=== PATIENT | male | born 1995 | race Caucasian/White ===

== ENCOUNTER 2017-05-17 21:08 | Emergency (ER) | payer MEDICAID ==
[~2017-05-17] VITALS: Ht 162.6 cm; Wt 59.1 kg
[~2017-05-17 21:08] MED LIST: ESOM20CA PO; MESA4ENE4 RC; ONDA4TAB59 PO; ONDA4TAB6 PO; REM100I IV
[2017-05-17] MEDS ORDERED: metoclopramide 5 mg/ml inj IV ONE (21:30)
[2017-05-17] MEDS ORDERED: glycopyrrolate 0.2mg/ml inj IV ONE (21:30)
[2017-05-17] MEDS ORDERED: LORazepam 2 mg/ml vial IV ONE (21:30)
[2017-05-17] MEDS ORDERED: normal saline 1000ML IV soln IVB ONE ×2 (21:30)
[2017-05-17] MEDS ORDERED: diphenhydrAMINE 50 mg/ml inj IV ONE (21:30)
[2017-05-17 22:09] LABS: BASOPHILS % (AUTO) 0.2 % (0-1); EOSINOPHILS # (AUTO) 0.3 X10'3 (0-0.9); HEMATOCRIT 36.3 % (42.0-52.0); HEMOGLOBIN 12.1 g/dl (14.0-17.9); LYMPHOCYTES # (AUTO) 1.5 X10'3 (1.1-4.8); LYMPHOCYTES % (AUTO) 11.3 % (21-51); MEAN CORPUSCULAR HEMOGLOBIN 29.4 PG (27.0-31.0); MEAN CORPUSCULAR HGB CONC 33.3 % (33.0-36.5); MEAN CORPUSCULAR VOLUME 88.5 FL (78-98); MEAN PLATELET VOLUME 7.5 FL (7.4-10.4); MONOCYTES # (AUTO) 1.4 X10'3 (0-0.9); MONOCYTES % (AUTO) 10.7 % (2-12); NEUTROPHILS # (AUTO) 9.8 X10'3 (1.8-7.7); NEUTROPHILS % (AUTO) 75.8 % (42-75); PLATELET COUNT 450 X10'3 (140-440); RED BLOOD COUNT 4.11 X10'6 (4.70-6.10); RED CELL DISTRIBUTION WIDTH 13.7 % (11.5-14.5); WHITE BLOOD COUNT 12.9 X10'3 (4.5-11.0)
[2017-05-17 22:23] LABS: ALANINE AMINOTRANSFERASE 11 U/L (12-78); ALBUMIN 2.6 G/DL (3.4-5.0); ALBUMIN/GLOBULIN RATIO 0.5 (1.1-1.5); ALKALINE PHOSPHATASE 61 IU/L (20-180); ANION GAP 11 (8-16); ASPARTATE AMINO TRANSFERASE 15 U/L (10-37); BILIRUBIN,TOTAL 0.7 MG/DL (0.1-1.0); BLOOD UREA NITROGEN 7 MG/DL (7-18); BUN/CREATININE RATIO 7.1 (5.4-32.0); CALCIUM 8.4 MG/DL (8.5-10.1); CHLORIDE 101 MMOL/L (99-107); CREATININE 0.99 MG/DL (0.60-1.10); GLUCOSE 90 MG/DL (70-104); LIPASE 69 U/L (73-393); SODIUM 137 MMOL/L (135-145); TOTAL CARBON DIOXIDE 24.9 MMOL/L (24-32); TOTAL PROTEIN 7.6 G/DL (6.4-8.2); eGFR > 90 ML/MIN
[2017-05-17] MEDS ORDERED: POTA20TA19 PO (22:35)
[2017-05-17 23:29] LABS: CLARITY,URINE Clear (Clear); COLOR,URINE Dark Yellow (Yellow); GLUCOSE, URINE Negative (Neg); KETONES,URINE 15 mg/dl (Neg); LEUKOCYTE ESTERASE ,URINE Negative (Neg); NITRITES, URINE Negative (Neg); OCCULT BLOOD,URINE Moderate (Neg); PROTEIN,URINE Trace mg/dl (Neg)
[2017-05-17 23:47] LABS: UA COLLECTION TYPE VOIDED
[2017-05-17 23:57] VITALS: BP 121/69
[2017-05-17 23:58] LABS: BACTERIA,URINE 1+ /HPF (Neg); MUCUS STRANDS MODERATE /LPF (Neg); SQUAMOUS EPITHELIAL CELL,UR NONE SEEN /LPF (FEW); WBC,URINE 0-4 /HPF (0-4)
[2017-05-18 05:09] LABS: TOTAL CELLS COUNTED 100
[2017-05-18 05:10] LABS: PLATELET ESTIMATE INCREASED
== END 2017-05-17 23:58 | disposition home or self-care (01) ==
LOC: ER 21:09
DX: E87.6 Hypokalemia (principal); R10.84 Generalized abdominal pain; F12.10 Cannabis abuse, uncomplicated; I10 Essential (primary) hypertension
CPT/HCPCS: 36415; 80053; 81001; 83690; 85025; 96361; 96374; 96375; 99284; J1200; J2060; J2270; J2765; J3490; J7030

== ENCOUNTER 2017-05-24 21:22 | Emergency (ER) | payer MEDICAID ==
[~2017-05-24] VITALS: Ht 162.6 cm; Wt 57.8 kg
[~2017-05-24 21:22] MED LIST changes: +POTA20TA19 PO
[2017-05-25] MEDS ORDERED: normal saline 1000ML IV soln IVB ONE (00:05)
[2017-05-25] MEDS ORDERED: ondansetron/PF 4mg/2ml inj IV ONE (00:05)
[2017-05-25 00:50] LABS: BASOPHILS % (AUTO) 0.1 % (0-1); EOSINOPHILS # (AUTO) 0.4 X10'3 (0-0.9); EOSINOPHILS % (AUTO) 3.9 % (0-6); HEMATOCRIT 31.8 % (42.0-52.0); HEMOGLOBIN 10.5 g/dl (14.0-17.9); LYMPHOCYTES # (AUTO) 1.7 X10'3 (1.1-4.8); LYMPHOCYTES % (AUTO) 17.1 % (21-51); MEAN CORPUSCULAR HEMOGLOBIN 29.2 PG (27.0-31.0); MEAN CORPUSCULAR HGB CONC 33.1 % (33.0-36.5); MEAN PLATELET VOLUME 7.9 FL (7.4-10.4); MONOCYTES % (AUTO) 10.7 % (2-12); NEUTROPHILS # (AUTO) 6.7 X10'3 (1.8-7.7); NEUTROPHILS % (AUTO) 68.2 % (42-75); PLATELET COUNT 376 X10'3 (140-440); RED BLOOD COUNT 3.61 X10'6 (4.70-6.10); RED CELL DISTRIBUTION WIDTH 14.1 % (11.5-14.5); WHITE BLOOD COUNT 9.8 X10'3 (4.5-11.0)
[2017-05-25 01:09] LABS: ALANINE AMINOTRANSFERASE 16 U/L (12-78); ALBUMIN 2.2 G/DL (3.4-5.0); ALBUMIN/GLOBULIN RATIO 0.5 (1.1-1.5); ALKALINE PHOSPHATASE 56 IU/L (20-180); ANION GAP 4 (8-16); ASPARTATE AMINO TRANSFERASE 15 U/L (10-37); BILIRUBIN,TOTAL 0.3 MG/DL (0.1-1.0); BLOOD UREA NITROGEN 6 MG/DL (7-18); BUN/CREATININE RATIO 7.8 (5.4-32.0); CHLORIDE 106 MMOL/L (99-107); CREATININE 0.77 MG/DL (0.60-1.10); GLUCOSE 86 MG/DL (70-104); LIPASE 100 U/L (73-393); MAGNESIUM 2.1 MG/DL (1.5-2.4); POTASSIUM 3.7 MMOL/L (3.5-5.1); SODIUM 138 MMOL/L (135-145); TOTAL CARBON DIOXIDE 27.8 MMOL/L (24-32); eGFR > 90 ML/MIN
[2017-05-25] MEDS ORDERED: methylPREDNISolone sod succ 125mg/2ml vial IV ONE (01:45)
[2017-05-25] MEDS ORDERED: PRED20TA PO (01:46)
[2017-05-25 01:54] VITALS: BP 66/72
== END 2017-05-25 01:57 | disposition home or self-care (01) ==
LOC: ER 21:23
DX: K50.10 Crohn's disease of large intestine without complications (principal); R10.84 Generalized abdominal pain; F12.10 Cannabis abuse, uncomplicated; I10 Essential (primary) hypertension; Z79.899 Other long term (current) drug therapy
CPT/HCPCS: 36415; 74176; 80053; 83690; 83735; 85025; 96361; 96374; 96375; 99285; J2270; J2405; J2930; J7030

== ENCOUNTER 2017-06-28 14:27 | Inpatient (IN) | payer MEDICAID ==
[~2017-06-28] VITALS: Ht 165.1 cm; Wt 56.8 kg
[~2017-06-28 14:27] MED LIST changes: -POTA20TA19 PO
[2017-06-28] MEDS ORDERED: normal saline 1000ML IV soln IVB ONE (15:30)
[2017-06-28 16:02] LABS: BASOPHILS % (AUTO) 0.1 % (0-1); EOSINOPHILS # (AUTO) 0.2 X10'3 (0-0.9); EOSINOPHILS % (AUTO) 1.4 % (0-6); HEMATOCRIT 35.1 % (42.0-52.0); LYMPHOCYTES # (AUTO) 0.6 X10'3 (1.1-4.8); MEAN CORPUSCULAR HEMOGLOBIN 29.7 PG (27.0-31.0); MEAN CORPUSCULAR HGB CONC 34.1 % (33.0-36.5); MEAN CORPUSCULAR VOLUME 87.1 FL (78-98); MEAN PLATELET VOLUME 7.3 FL (7.4-10.4); MONOCYTES # (AUTO) 0.1 X10'3 (0-0.9); MONOCYTES % (AUTO) 1.2 % (2-12); NEUTROPHILS % (AUTO) 92.3 % (42-75); PLATELET COUNT 332 X10'3 (140-440); RED BLOOD COUNT 4.03 X10'6 (4.70-6.10); RED CELL DISTRIBUTION WIDTH 17.3 % (11.5-14.5); WHITE BLOOD COUNT 11.9 X10'3 (4.5-11.0)
[2017-06-28 16:12] LABS: INR 1.1 INR; PARTIAL THROMBOPLASTIN TIME 27 SECONDS (22-32); PROTHROMBIN TIME 11.4 SECONDS (9.0-12.0)
[2017-06-28 16:16] LABS: TOTAL CELLS COUNTED 100
[2017-06-28 16:17] LABS: ANISOCYTOSIS 1+; PLATELET ESTIMATE NORMAL
[2017-06-28 16:23] LABS: ALANINE AMINOTRANSFERASE 11 U/L (12-78); ALBUMIN 2.6 G/DL (3.4-5.0); ALBUMIN/GLOBULIN RATIO 0.6 (1.1-1.5); ALKALINE PHOSPHATASE 53 IU/L (20-180); ANION GAP 8 (8-16); ASPARTATE AMINO TRANSFERASE 10 U/L (10-37); BILIRUBIN,TOTAL 0.4 MG/DL (0.1-1.0); BLOOD UREA NITROGEN 6 MG/DL (7-18); BUN/CREATININE RATIO 8.6 (5.4-32.0); CALCIUM 8.6 MG/DL (8.5-10.1); CHLORIDE 105 MMOL/L (99-107); GLUCOSE 99 MG/DL (70-104); SODIUM 142 MMOL/L (135-145); TOTAL CARBON DIOXIDE 28.9 MMOL/L (24-32); TOTAL PROTEIN 6.9 G/DL (6.4-8.2); TROPONIN I < 0.04 NG/ML (0.0-0.05); eGFR > 90 ML/MIN
[2017-06-28 16:25] LABS: CLARITY,URINE Clear (Clear); GLUCOSE, URINE Negative (Neg); KETONES,URINE Negative (Neg); LEUKOCYTE ESTERASE ,URINE Negative (Neg); NITRITES, URINE Negative (Neg); OCCULT BLOOD,URINE Trace (Neg); PH,URINE 6.5 (4.8-8.0); PROTEIN,URINE Negative (Neg); UROBILINOGEN,URINE 0.2 E.U/dL (0.2-1.0)
[2017-06-28 16:30] LABS: COLOR,URINE STRAW (Yellow); UA COLLECTION TYPE CLN CATCH MIDSTREAM
[2017-06-28 16:34] LABS: BACTERIA,URINE NONE SEEN /HPF (Neg); MUCUS STRANDS NONE SEEN /LPF (Neg); RBC,URINE 0-2 /HPF (0-2); SQUAMOUS EPITHELIAL CELL,UR NONE SEEN /LPF (FEW); WBC,URINE NONE SEEN /HPF (0-4)
[2017-06-28] MEDS ORDERED: CefTRIAXone 2gm/NS 100ml IVPB 100 ML IV ONE (17:25)
[2017-06-28] MEDS ORDERED: normal saline 1000ML IV soln IV ONE (17:25)
[2017-06-28 17:45] LABS: MAGNESIUM 1.8 MG/DL (1.5-2.4)
[2017-06-28] MEDS ORDERED: mag hydrox/Alum hydrox/simeth 30ml oral suspension PO PRN (18:10)
[2017-06-28] MEDS ORDERED: ondansetron/PF 4mg/2ml inj IV PRN (18:10)
[2017-06-28] MEDS ORDERED: acetaminophen 325mg tablet PO PRN (18:10)
[2017-06-28] MEDS ORDERED: magnesium hydroxide 30ml (MOM) UD suspension PO PRN (18:10)
[2017-06-28] MEDS ORDERED: iohexol 350MG/ML 100ml bottle IV ONE (18:26)
[2017-06-28] MEDS: normal saline 1000ml 1,000 ML IV SCH (18:59)
[2017-06-28 19:45] VITALS: BP 135/82
[2017-06-28] MEDS ORDERED: MERC50TA16 PO (20:09)
[2017-06-28] MEDS ORDERED: METR250T PO (20:11)
[2017-06-28] MEDS ORDERED: PANT-47 PO (20:12)
[2017-06-28] MEDS ORDERED: ESCI10TA54 PO (20:13)
[2017-06-28] MEDS ORDERED: PRED20TA PO ×2 (20:13→20:16)
[2017-06-28] MEDS ORDERED: CHOL100046 PO (20:14)
[2017-06-28] MEDS: cefepime 2g/NS 100ml ADVANTAGE 100 ML IV SCH (20:31)
[2017-06-28] MEDS: heparin, porcine 5000 units/ml vial SQ SCH (20:32)
[2017-06-29] VITALS: BP 127/90
[2017-06-29] MEDS: normal saline 1000ml 1,000 ML IV SCH (04:40)
[2017-06-29 04:50] LABS: BASOPHILS % (AUTO) 0.2 % (0-1); EOSINOPHILS # (AUTO) 0.2 X10'3 (0-0.9); EOSINOPHILS % (AUTO) 1.6 % (0-6); HEMOGLOBIN 10.4 g/dl (14.0-17.9); LYMPHOCYTES # (AUTO) 1.4 X10'3 (1.1-4.8); LYMPHOCYTES % (AUTO) 9.9 % (21-51); MEAN CORPUSCULAR HEMOGLOBIN 29.7 PG (27.0-31.0); MEAN CORPUSCULAR HGB CONC 33.7 % (33.0-36.5); MEAN CORPUSCULAR VOLUME 88.1 FL (78-98); MONOCYTES # (AUTO) 1.2 X10'3 (0-0.9); MONOCYTES % (AUTO) 8.7 % (2-12); NEUTROPHILS # (AUTO) 11.1 X10'3 (1.8-7.7); NEUTROPHILS % (AUTO) 79.6 % (42-75); PLATELET COUNT 352 X10'3 (140-440); RED BLOOD COUNT 3.51 X10'6 (4.70-6.10); RED CELL DISTRIBUTION WIDTH 16.9 % (11.5-14.5)
[2017-06-29 05:11] LABS: ANION GAP 8 (8-16); BLOOD UREA NITROGEN 7 MG/DL (7-18); CALCIUM 8.1 MG/DL (8.5-10.1); CHLORIDE 108 MMOL/L (99-107); GLUCOSE 117 MG/DL (70-104); POTASSIUM 4.2 MMOL/L (3.5-5.1); SODIUM 144 MMOL/L (135-145); TOTAL CARBON DIOXIDE 27.7 MMOL/L (24-32); eGFR > 90 ML/MIN
[2017-06-29 07:00] VITALS: BP 117/69
[2017-06-29] MEDS: cefepime 2g/NS 100ml ADVANTAGE 100 ML IV SCH (07:42)
[2017-06-29] MEDS: heparin, porcine 5000 units/ml vial SQ SCH (08:00)
[2017-06-29 11:00] VITALS: BP 124/84
== END 2017-06-29 15:32 | disposition home or self-care (01) | DRG 422 ==
LOC: ER 14:27 → ED HOLD 18:06 → SUR 3N 19:33
PROVIDERS: ADMIT Family Medicine; ATTEND Family Medicine
DX: E86.0 Dehydration (principal); K50.90 Crohn's disease, unspecified, without complications; I10 Essential (primary) hypertension; T38.0X5A Adverse effect of glucocorticoids and synthetic analogues, initial encounter; D72.829 Elevated white blood cell count, unspecified; F12.90 Cannabis use, unspecified, uncomplicated; Z79.52 Long term (current) use of systemic steroids; Z79.899 Other long term (current) drug therapy; Y92.89 Other specified places as the place of occurrence of the external cause
CPT/HCPCS: 36415; 70450; 71045; 71275; 72125; 80048; 80053; 81001; 83605; 83735; 84145; 84484; 85025; 85610; 85730; 87040; 87070; 93306; 96361; 96365; 99285; J0692; J0696; J1644; J7030; Q9967

== ENCOUNTER 2017-10-12 20:50 | Emergency (ER) | payer MEDICAID ==
[~2017-10-12] VITALS: Ht 165.1 cm; Wt 58.6 kg
[~2017-10-12 20:50] MED LIST changes: +CHOL100046 PO; +ESCI10TA54 PO; -ESOM20CA PO; +MERC50TA16 PO; -MESA4ENE4 RC; +METR250T PO; -ONDA4TAB59 PO; -ONDA4TAB6 PO; +PANT-47 PO; +PRED20TA PO; -REM100I IV
[2017-10-12 21:17] LABS: BASOPHILS % (AUTO) 0.3 % (0-1); EOSINOPHILS # (AUTO) 0.5 X10'3 (0-0.9); EOSINOPHILS % (AUTO) 4.8 % (0-6); HEMATOCRIT 33.2 % (42.0-52.0); HEMOGLOBIN 11.3 g/dl (14.0-17.9); LYMPHOCYTES # (AUTO) 1.6 X10'3 (1.1-4.8); LYMPHOCYTES % (AUTO) 15.8 % (21-51); MEAN CORPUSCULAR HEMOGLOBIN 29.7 PG (27.0-31.0); MEAN CORPUSCULAR VOLUME 87.2 FL (78-98); MEAN PLATELET VOLUME 6.2 FL (7.4-10.4); MONOCYTES # (AUTO) 0.8 X10'3 (0-0.9); NEUTROPHILS # (AUTO) 7.2 X10'3 (1.8-7.7); NEUTROPHILS % (AUTO) 71.1 % (42-75); PLATELET COUNT 617 X10'3 (140-440); RED CELL DISTRIBUTION WIDTH 17.1 % (11.5-14.5); WHITE BLOOD COUNT 10.1 X10'3 (4.5-11.0)
[2017-10-12 21:27] LABS: INR 1.2 INR; PROTHROMBIN TIME 12.3 SECONDS (9.0-12.0)
[2017-10-12] MEDS ORDERED: dexamethasone sod phosphate 10mg/ml inj IV STA (21:29)
[2017-10-12 21:31] LABS: ALANINE AMINOTRANSFERASE 16 U/L (12-78); ALBUMIN 2.2 G/DL (3.4-5.0); ALBUMIN/GLOBULIN RATIO 0.4 (1.1-1.5); ALKALINE PHOSPHATASE 66 IU/L (20-180); ANION GAP 8 (8-16); ASPARTATE AMINO TRANSFERASE 11 U/L (10-37); BILIRUBIN,TOTAL 0.4 MG/DL (0.1-1.0); BLOOD UREA NITROGEN 4 MG/DL (7-18); BUN/CREATININE RATIO 4.3 (5.4-32.0); CALCIUM 8.1 MG/DL (8.5-10.1); CHLORIDE 101 MMOL/L (99-107); CREATININE 0.94 MG/DL (0.60-1.10); POTASSIUM 3.5 MMOL/L (3.5-5.1); SODIUM 136 MMOL/L (135-145); TOTAL CARBON DIOXIDE 27.1 MMOL/L (24-32); TOTAL PROTEIN 7.4 G/DL (6.4-8.2); eGFR > 90 ML/MIN
[2017-10-12 21:33] LABS: GLUCOSE 94 MG/DL (70-104)
[2017-10-12] MEDS ORDERED: ondansetron/PF 4mg/2ml inj IV ONE (21:35)
[2017-10-12] MEDS ORDERED: normal saline 1000ML IV soln IVB ONE (21:35)
[2017-10-12 21:39] LABS: NUCLEATED RED BLOOD CELLS 1 /100WBC (0-0); TOTAL CELLS COUNTED 100
[2017-10-12 21:40] LABS: ANISOCYTOSIS 1+; LARGE PLATELETS FEW; PLATELET ESTIMATE INCREASED
[2017-10-12 22:00] VITALS: BP 109/61
[2017-10-12] MEDS ORDERED: PRED5TAB PO (22:01)
[2017-10-12] MEDS ORDERED: ONDA4TAB9 PO (22:04)
[2017-10-12 22:48] LABS: CLARITY,URINE CLEAR (Clear); COLOR,URINE YELLOW (Yellow); GLUCOSE, URINE NEGATIVE (Neg); KETONES,URINE NEGATIVE (Neg); LEUKOCYTE ESTERASE ,URINE NEGATIVE (Neg); NITRITES, URINE NEGATIVE (Neg); OCCULT BLOOD,URINE MODERATE (Neg); PH,URINE 6.5 (4.8-8.0); PROTEIN,URINE NEGATIVE (Neg); UROBILINOGEN,URINE 0.2 E.U/dL (0.2-1.0)
[2017-10-12 22:59] LABS: UA COLLECTION TYPE CLN CATCH MIDSTREAM
[2017-10-12 23:01] LABS: BACTERIA,URINE NONE SEEN /HPF (Neg); WBC,URINE 0-4 /HPF (0-4)
[2017-10-12 23:02] LABS: MUCUS STRANDS MANY /LPF (Neg); SQUAMOUS EPITHELIAL CELL,UR FEW /LPF (FEW); TRANSITIONAL EPI CELLS,URINE FEW /HPF
== END 2017-10-12 23:01 | disposition home or self-care (01) ==
LOC: ER 20:50
DX: K50.90 Crohn's disease, unspecified, without complications (principal); I10 Essential (primary) hypertension; F12.10 Cannabis abuse, uncomplicated; Z79.899 Other long term (current) drug therapy
CPT/HCPCS: 36415; 80053; 81001; 85025; 85610; 96374; 96375; 99284; J1100; J2405; J7030

== ENCOUNTER 2018-01-28 23:02 | Emergency (ER) | payer MEDICAID ==
[~2018-01-28] VITALS: Ht 165.1 cm; Wt 61.1 kg
[~2018-01-28 23:02] MED LIST changes: +PRED5TAB PO
[2018-01-28] MEDS ORDERED: normal saline 1000ML IV soln IVB ONE (23:40)
[2018-01-28] MEDS ORDERED: ondansetron/PF 4mg/2ml inj IV ONE (23:40)
[2018-01-28] MEDS ORDERED: morphine 4 MG/ML inj SYRINge IV PRN (23:40)
[2018-01-29 00:31] LABS: ALANINE AMINOTRANSFERASE 10 U/L (12-78); ALBUMIN 2.3 G/DL (3.4-5.0); ALBUMIN/GLOBULIN RATIO 0.5 (1.1-1.5); ALKALINE PHOSPHATASE 72 IU/L (20-180); ANION GAP 9 (8-16); ASPARTATE AMINO TRANSFERASE 13 U/L (10-37); BILIRUBIN,TOTAL 0.3 MG/DL (0.1-1.0); BLOOD UREA NITROGEN 4 MG/DL (7-18); CALCIUM 8.7 MG/DL (8.5-10.1); CHLORIDE 102 MMOL/L (99-107); CREATININE 0.67 MG/DL (0.60-1.10); GLUCOSE 83 MG/DL (70-104); LIPASE 82 U/L (73-393); POTASSIUM 3.8 MMOL/L (3.5-5.1); SODIUM 137 MMOL/L (135-145); TOTAL CARBON DIOXIDE 26.2 MMOL/L (24-32); TOTAL PROTEIN 7.4 G/DL (6.4-8.2); eGFR > 90 ML/MIN
[2018-01-29 00:57] LABS: BASOPHILS # (AUTO) 0.1 X10'3 (0-0.2); BASOPHILS % (AUTO) 0.9 % (0-1); EOSINOPHILS # (AUTO) 0.3 X10'3 (0-0.9); HEMATOCRIT 32.4 % (42.0-52.0); HEMOGLOBIN 10.6 g/dl (14.0-17.9); LYMPHOCYTES # (AUTO) 1.4 X10'3 (1.1-4.8); LYMPHOCYTES % (AUTO) 14.7 % (21-51); MEAN CORPUSCULAR HGB CONC 32.8 % (33.0-36.5); MEAN CORPUSCULAR VOLUME 97.6 FL (78-98); MEAN PLATELET VOLUME 7.7 FL (7.4-10.4); MONOCYTES # (AUTO) 0.8 X10'3 (0-0.9); MONOCYTES % (AUTO) 8.1 % (2-12); NEUTROPHILS # (AUTO) 7.2 X10'3 (1.8-7.7); NEUTROPHILS % (AUTO) 73.3 % (42-75); PLATELET COUNT 473 X10'3 (140-440); RED BLOOD COUNT 3.32 X10'6 (4.70-6.10); RED CELL DISTRIBUTION WIDTH 15.4 % (11.5-14.5); WHITE BLOOD COUNT 9.8 X10'3 (4.5-11.0)
[2018-01-29 01:07] VITALS: BP 115/61
[2018-01-29] MEDS ORDERED: PRED10TA PO (01:09)
[2018-01-29 01:14] LABS: TOTAL CELLS COUNTED 100
[2018-01-29 01:15] LABS: PLATELET ESTIMATE INCREASED; TOXIC GRANULATION 1+
== END 2018-01-29 01:24 | disposition home or self-care (01) ==
LOC: ER 23:03
DX: K50.90 Crohn's disease, unspecified, without complications (principal); I10 Essential (primary) hypertension; F12.90 Cannabis use, unspecified, uncomplicated; Z79.899 Other long term (current) drug therapy
CPT/HCPCS: 36415; 80053; 83690; 85025; 96361; 96374; 96375; 99284; J2270; J2405

== ENCOUNTER 2018-02-19 16:33 | Emergency (ER) | payer MEDICAID ==
[~2018-02-19] VITALS: Ht 165.1 cm; Wt 59.0 kg
[~2018-02-19 16:33] MED LIST changes: +PRED10TA PO
[2018-02-19] MEDS ORDERED: normal saline 1000ML IV soln IVB ONE (18:30)
[2018-02-19] MEDS ORDERED: morphine 4 MG/ML inj SYRINge IV PRN (18:30)
[2018-02-19] MEDS ORDERED: ondansetron/PF 4mg/2ml inj IV ONE (18:30)
[2018-02-19 18:52] LABS: ALANINE AMINOTRANSFERASE 10 U/L (12-78); ALBUMIN 2.1 G/DL (3.4-5.0); ALBUMIN/GLOBULIN RATIO 0.4 (1.1-1.5); ALKALINE PHOSPHATASE 76 IU/L (20-180); ANION GAP 9 (8-16); ASPARTATE AMINO TRANSFERASE 14 U/L (10-37); BILIRUBIN,TOTAL 0.4 MG/DL (0.1-1.0); BLOOD UREA NITROGEN 4 MG/DL (7-18); BUN/CREATININE RATIO 5.8 (5.4-32.0); CHLORIDE 101 MMOL/L (99-107); CREATININE 0.69 MG/DL (0.60-1.10); GLUCOSE 80 MG/DL (70-104); LIPASE 76 U/L (73-393); POTASSIUM 3.6 MMOL/L (3.5-5.1); SODIUM 136 MMOL/L (135-145); TOTAL CARBON DIOXIDE 25.8 MMOL/L (24-32); TOTAL PROTEIN 7.2 G/DL (6.4-8.2); eGFR > 90 ML/MIN
[2018-02-19 19:04] LABS: BASOPHILS % (AUTO) 0.1 % (0-1); EOSINOPHILS # (AUTO) 0.2 X10'3 (0-0.9); HEMATOCRIT 30.6 % (42.0-52.0); HEMOGLOBIN 10.8 g/dl (14.0-17.9); LYMPHOCYTES # (AUTO) 0.9 X10'3 (1.1-4.8); LYMPHOCYTES % (AUTO) 9.8 % (21-51); MEAN CORPUSCULAR HEMOGLOBIN 32.8 PG (27.0-31.0); MEAN CORPUSCULAR HGB CONC 35.2 % (33.0-36.5); MEAN CORPUSCULAR VOLUME 93.3 FL (78-98); MEAN PLATELET VOLUME 6.6 FL (7.4-10.4); MONOCYTES # (AUTO) 0.5 X10'3 (0-0.9); MONOCYTES % (AUTO) 5.1 % (2-12); NEUTROPHILS # (AUTO) 7.5 X10'3 (1.8-7.7); PLATELET COUNT 380 X10'3 (140-440); RED BLOOD COUNT 3.28 X10'6 (4.70-6.10); WHITE BLOOD COUNT 9.1 X10'3 (4.5-11.0)
[2018-02-19 19:06] LABS: CLARITY,URINE SLIGHTLY CLOUDY (Clear); COLOR,URINE YELLOW (Yellow); GLUCOSE, URINE NEGATIVE (Neg); KETONES,URINE NEGATIVE (Neg); LEUKOCYTE ESTERASE ,URINE NEGATIVE (Neg); NITRITES, URINE NEGATIVE (Neg); OCCULT BLOOD,URINE MODERATE (Neg); PH,URINE 6.5 (4.8-8.0); PROTEIN,URINE TRACE mg/dl (Neg)
[2018-02-19 19:39] LABS: UA COLLECTION TYPE CLN CATCH MIDSTREAM
[2018-02-19 19:40] LABS: BACTERIA,URINE FEW /HPF (Neg); MUCUS STRANDS MODERATE /LPF (Neg); SQUAMOUS EPITHELIAL CELL,UR FEW /LPF (FEW)
[2018-02-19 21:20] VITALS: BP 118/69
[2018-02-19] MEDS ORDERED: dexamethasone sod phosphate 10mg/ml inj IV STA (21:29)
[2018-02-19] MEDS ORDERED: METH4TAB81 PO (21:31)
[2018-02-19] MEDS ORDERED: CIPR-259 PO (21:31)
[2018-02-19] MEDS ORDERED: METR500T PO (21:31)
[2018-02-19] MEDS ORDERED: HYDR-3965 PO (21:31)
[2018-02-19] MEDS ORDERED: ONDA4TAB9 PO (21:31)
[2018-02-19 21:53] LABS: TOTAL CELLS COUNTED 100; TOXIC GRANULATION 1+
[2018-02-19 21:55] LABS: PLATELET ESTIMATE INCREASED
== END 2018-02-19 21:50 | disposition home or self-care (01) ==
LOC: ER 16:34
DX: K52.9 Noninfective gastroenteritis and colitis, unspecified (principal); I10 Essential (primary) hypertension; F12.90 Cannabis use, unspecified, uncomplicated; Z79.899 Other long term (current) drug therapy
CPT/HCPCS: 36415; 74176; 80053; 81001; 83690; 85025; 87088; 96374; 96375; 99285; J1100; J2270; J2405

== ENCOUNTER 2018-02-27 23:14 | Inpatient (IN) | payer MEDICAID ==
[~2018-02-27] VITALS: Ht 165.1 cm; Wt 58.0 kg
[~2018-02-27 23:14] MED LIST changes: +CIPR-259 PO; +HYDR-3965 PO; +METH4TAB81 PO; +METR500T PO; +ONDA4TAB9 PO
[2018-02-27] MEDS ORDERED: levoFLOXACIN-Levaquin 750MG/D5 150 ML IV ONE (23:35)
[2018-02-27] MEDS ORDERED: normal saline 1000ML IV soln IV ONE (23:35)
[2018-02-27] MEDS ORDERED: acetaminophen 325mg tablet PO STA (23:40)
[2018-02-27 23:46] LABS: BASOPHILS % (AUTO) 0.2 % (0-1); EOSINOPHILS # (AUTO) 0.2 X10'3 (0-0.9)
[2018-02-27 23:50] LABS: EOSINOPHILS % (AUTO) 3.2 % (0-6); HEMATOCRIT 31.3 % (42.0-52.0); LYMPHOCYTES # (AUTO) 1.8 X10'3 (1.1-4.8); LYMPHOCYTES % (AUTO) 25.2 % (21-51); MEAN CORPUSCULAR HEMOGLOBIN 32.3 PG (27.0-31.0); MEAN CORPUSCULAR HGB CONC 35.1 % (33.0-36.5); MEAN CORPUSCULAR VOLUME 91.9 FL (78-98); MONOCYTES # (AUTO) 0.4 X10'3 (0-0.9); NEUTROPHILS # (AUTO) 4.9 X10'3 (1.8-7.7); NEUTROPHILS % (AUTO) 65.4 % (42-75); PLATELET COUNT 343 X10'3 (140-440); RED CELL DISTRIBUTION WIDTH 15.1 % (11.5-14.5); WHITE BLOOD COUNT 7.3 X10'3 (4.5-11.0)
[2018-02-27] MEDS ORDERED: ADAL40PE SUBCUT (23:52)
[2018-02-28 00:05] LABS: INR 1.2 INR; PARTIAL THROMBOPLASTIN TIME 28 SECONDS (22-32); PROTHROMBIN TIME 12.2 SECONDS (9.0-12.0)
[2018-02-28 00:11] LABS: ALANINE AMINOTRANSFERASE 58 U/L (12-78); ALBUMIN 2.1 G/DL (3.4-5.0); ALBUMIN/GLOBULIN RATIO 0.5 (1.1-1.5); ALKALINE PHOSPHATASE 252 IU/L (20-180); ANION GAP 4 (8-16); ASPARTATE AMINO TRANSFERASE 40 U/L (10-37); BILIRUBIN,TOTAL 0.3 MG/DL (0.1-1.0); BLOOD UREA NITROGEN 6 MG/DL (7-18); BUN/CREATININE RATIO 6.7 (5.4-32.0); CALCIUM 7.8 MG/DL (8.5-10.1); CHLORIDE 100 MMOL/L (99-107); CREATININE 0.89 MG/DL (0.60-1.10); GLUCOSE 98 MG/DL (70-104); POTASSIUM 4.2 MMOL/L (3.5-5.1); SODIUM 136 MMOL/L (135-145); TOTAL CARBON DIOXIDE 32.1 MMOL/L (24-32); TOTAL PROTEIN 6.7 G/DL (6.4-8.2); eGFR > 90 ML/MIN
[2018-02-28] MEDS ORDERED: normal saline 1000ML IV soln IVB ONE (02:00)
[2018-02-28] MEDS ORDERED: HYDROcodone/acetaminophen 5mg/325mg tablet PO PRN (02:20)
[2018-02-28] MEDS ORDERED: normal saline 1000ml 1,000 ML IV SCH (02:21)
[2018-02-28] MEDS ORDERED: HYDROmorphone 1 mg/ml syringe IV PRN ×2 (02:25)
[2018-02-28] MEDS ORDERED: morphine 2 MG/ML inj. syringe IV PRN ×2 (02:25)
[2018-02-28] MEDS ORDERED: mag hydrox/Alum hydrox/simeth 30ml oral suspension PO PRN (02:25)
[2018-02-28] MEDS ORDERED: acetaminophen 325mg tablet PO PRN ×2 (02:25)
[2018-02-28] MEDS ORDERED: diphenhydrAMINE 25mg capsule PO PRN (02:25)
[2018-02-28] MEDS ORDERED: ondansetron/PF 4mg/2ml inj IV PRN (02:25)
[2018-02-28] MEDS ORDERED: bisacodyl 10mg suppository rectal RC PRN (02:25)
[2018-02-28] MEDS ORDERED: diphenhydrAMINE 50 mg/ml inj IV PRN (02:25)
[2018-02-28] MEDS ORDERED: acetaminophen 650mg rectal suppository RC PRN (02:25)
[2018-02-28] MEDS ORDERED: magnesium hydroxide 30ml (MOM) UD suspension PO PRN (02:25)
[2018-02-28] MEDS ORDERED: HYDROcodone/acetaminophen 10/325mg tab PO PRN (02:25)
[2018-02-28] MEDS ORDERED: proCHLORperazine 10 MG/2 ml inj IV PRN (02:30)
[2018-02-28 03:33] LABS: URINE AMPHETAMINE SCREEN NEGATIVE (Neg); URINE BARBITUATE SCREEN NEGATIVE (Neg); URINE BENZODIAZEPINES SCREEN NEGATIVE (Neg); URINE CANNABINOID SCREEN POSITIVE (Neg); URINE COCAINE SCREEN NEGATIVE (Neg); URINE METHADONE SCREEN NEGATIVE (Neg); URINE OPIATE SCREEN NEGATIVE (Neg); URINE PHENCYCLIDINE SCREEN NEGATIVE (Neg)
[2018-02-28] MEDS ORDERED: ADALIMUMAB SUBCUT SCH ×2 (03:35→04:00)
[2018-02-28 03:37] LABS: CLARITY,URINE CLEAR (Clear); COLOR,URINE YELLOW (Yellow); GLUCOSE, URINE NEGATIVE (Neg); KETONES,URINE NEGATIVE (Neg); LEUKOCYTE ESTERASE ,URINE NEGATIVE (Neg); NITRITES, URINE NEGATIVE (Neg); OCCULT BLOOD,URINE TRACE-INTACT (Neg); PH,URINE 6.5 (4.8-8.0); PROTEIN,URINE NEGATIVE (Neg); UROBILINOGEN,URINE 0.2 E.U/dL (0.2-1.0)
[2018-02-28 03:38] LABS: UA COLLECTION TYPE CLN CATCH MIDSTREAM
[2018-02-28 03:45] LABS: LIPASE 114 U/L (73-393); MAGNESIUM 1.8 MG/DL (1.5-2.4); PHOSPHORUS 2.7 MG/DL (2.3-4.5); TROPONIN I < 0.04 NG/ML (0.0-0.05)
[2018-02-28 03:48] LABS: BACTERIA,URINE FEW /HPF (Neg); RBC,URINE 0-2 /HPF (0-2); SQUAMOUS EPITHELIAL CELL,UR FEW /LPF (FEW); WBC,URINE NONE SEEN /HPF (0-4)
[2018-02-28 04:00] VITALS: BP 92/51
[2018-02-28 06:00] VITALS: BP 109/58
[2018-02-28] MEDS: docusate sod 100mg capsule PO SCH ×2 (08:00→19:18)
[2018-02-28] MEDS ORDERED: methylPREDNISolone sod succ 125mg/2ml vial IV SCH (08:00)
[2018-02-28] MEDS ORDERED: pantoprazole 40 MG vial IV SCH (08:00)
[2018-02-28] MEDS: citalopram 20mg tablet PO SCH (08:21)
[2018-02-28] MEDS: levoFLOXACIN-Levaquin 500mg/D5 100 ML IV SCH (08:22)
[2018-02-28 09:29] VITALS: BP 119/74
[2018-02-28 16:19] LABS: OCCULT BLOOD STOOL NEGATIVE (Neg)
[2018-02-28 18:00] VITALS: BP 121/69
[2018-02-28] MEDS: lactobacillus rhamnosus 10,000 MMU CELLS/CAPSULE PO SCH (19:17)
[2018-02-28] MEDS: methylPREDNISolone sod succ/PF 40mg inj. IV SCH (19:17)
[2018-02-28] MEDS ORDERED: temazepam 15mg capsule PO PRN (21:00)
[2018-02-28 22:00] VITALS: BP 116/74
[2018-03-01 05:24] LABS: BASOPHILS % (AUTO) 0 % (0-1); EOSINOPHILS % (AUTO) 0 % (0-6); HEMATOCRIT 28.6 % (42.0-52.0); HEMOGLOBIN 9.2 g/dl (14.0-17.9); LYMPHOCYTES # (AUTO) 0.6 X10'3 (1.1-4.8); LYMPHOCYTES % (AUTO) 6.9 % (21-51); MEAN CORPUSCULAR HEMOGLOBIN 30.1 PG (27.0-31.0); MEAN CORPUSCULAR HGB CONC 32.3 % (33.0-36.5); MEAN CORPUSCULAR VOLUME 93.3 FL (78-98); MONOCYTES # (AUTO) 0.6 X10'3 (0-0.9); MONOCYTES % (AUTO) 5.9 % (2-12); NEUTROPHILS # (AUTO) 8.2 X10'3 (1.8-7.7); NEUTROPHILS % (AUTO) 87.2 % (42-75); PLATELET COUNT 280 X10'3 (140-440); RED BLOOD COUNT 3.07 X10'6 (4.70-6.10); RED CELL DISTRIBUTION WIDTH 15.4 % (11.5-14.5); WHITE BLOOD COUNT 9.4 X10'3 (4.5-11.0)
[2018-03-01 06:00] VITALS: BP 108/71
[2018-03-01 06:40] LABS: ALANINE AMINOTRANSFERASE 41 U/L (12-78); ALBUMIN 1.8 G/DL (3.4-5.0); ALBUMIN/GLOBULIN RATIO 0.4 (1.1-1.5); ALKALINE PHOSPHATASE 172 IU/L (20-180); ANION GAP 8 (8-16); ASPARTATE AMINO TRANSFERASE 19 U/L (10-37); BILIRUBIN,TOTAL 0.2 MG/DL (0.1-1.0); BLOOD UREA NITROGEN 7 MG/DL (7-18); BUN/CREATININE RATIO 11.7 (5.4-32.0); CALCIUM 7.8 MG/DL (8.5-10.1); CHLORIDE 110 MMOL/L (99-107); CHOL/HDL RATIO 2.3 (0.00-4.99); CHOLESTEROL 104 MG/DL (0-200); GLUCOSE 117 MG/DL (70-104); HDL CHOLESTEROL 45 MG/DL (35-60); LDL CHOLESTEROL 56 MG/DL (50-100); POTASSIUM 4.7 MMOL/L (3.5-5.1); SODIUM 143 MMOL/L (135-145); TOTAL CARBON DIOXIDE 24.9 MMOL/L (24-32); TRIGLYCERIDES 24 MG/DL (20-135); eGFR > 90 ML/MIN
[2018-03-01] MEDS ORDERED: pantoprazole 40mg Tablet.DR PO SCH (07:30)
[2018-03-01] MEDS: methylPREDNISolone sod succ/PF 40mg inj. IV SCH (09:42)
[2018-03-01] MEDS: lactobacillus rhamnosus 10,000 MMU CELLS/CAPSULE PO SCH (09:42)
[2018-03-01] MEDS: levoFLOXACIN-Levaquin 500mg/D5 100 ML IV SCH (09:42)
[2018-03-01] MEDS: citalopram 20mg tablet PO SCH (09:42)
[2018-03-01] MEDS: docusate sod 100mg capsule PO SCH (09:43)
[2018-03-01 10:00] VITALS: BP 119/79
[2018-03-01] MEDS ORDERED: PRED10TA23 PO (10:54)
[2018-03-01] MEDS ORDERED: LEVO500T89 PO (10:54)
== END 2018-03-01 12:23 | disposition home or self-care (01) | DRG 245 ==
LOC: ER 23:14 → ED HOLD 02-28 02:21 → ORTHO 4S 02-28 03:25
PROVIDERS: ADMIT Family Medicine; ATTEND Hospitalist
DX: K50.90 Crohn's disease, unspecified, without complications (principal); A04.9 Bacterial intestinal infection, unspecified; E86.0 Dehydration; E86.1 Hypovolemia; F12.90 Cannabis use, unspecified, uncomplicated; I10 Essential (primary) hypertension; R55 Syncope and collapse; T38.0X5A Adverse effect of glucocorticoids and synthetic analogues, initial encounter; Z79.899 Other long term (current) drug therapy; Y92.89 Other specified places as the place of occurrence of the external cause
CPT/HCPCS: 36415; 70450; 71045; 74176; 80053; 80061; 80305; 81001; 82272; 83036; 83605; 83690; 83735; 83880; 84100; 84145; 84443; 84484; 85025; 85610; 85730; 87040; 87045; 87046; 87070; 89055; 93005; 96365; 96366; 99285; C9113; J1956; J2405; J2920; J2930; J7030

== ENCOUNTER 2018-05-13 20:29 | Emergency (ER) | payer MEDICAID ==
[~2018-05-13] VITALS: Ht 165.1 cm; Wt 58.3 kg
[~2018-05-13 20:29] MED LIST changes: +ADAL40PE SUBCUT; -CHOL100046 PO; -CIPR-259 PO; -HYDR-3965 PO; -METH4TAB81 PO; -METR250T PO; -METR500T PO; -ONDA4TAB9 PO; -PANT-47 PO; -PRED10TA PO; -PRED5TAB PO
[2018-05-13] MEDS ORDERED: normal saline 1000ML IV soln IVB ONE (21:30)
[2018-05-13] MEDS ORDERED: ondansetron/PF 4mg/2ml inj IV ONE (21:30)
[2018-05-13] MEDS: morphine 4 MG/ML inj SYRINge IV PRN ×2 (22:01→22:54)
[2018-05-13 22:08] LABS: BASOPHILS # (AUTO) 0.1 X10'3 (0-0.2); BASOPHILS % (AUTO) 0.6 % (0-1); EOSINOPHILS # (AUTO) 0.4 X10'3 (0-0.9); EOSINOPHILS % (AUTO) 4.1 % (0-6); HEMATOCRIT 35.8 % (42.0-52.0); HEMOGLOBIN 11.7 g/dl (14.0-17.9); LYMPHOCYTES # (AUTO) 1.7 X10'3 (1.1-4.8); LYMPHOCYTES % (AUTO) 17.8 % (21-51); MEAN CORPUSCULAR HEMOGLOBIN 29.1 PG (27.0-31.0); MEAN CORPUSCULAR HGB CONC 32.7 % (33.0-36.5); MEAN CORPUSCULAR VOLUME 88.7 FL (78-98); MEAN PLATELET VOLUME 6.5 FL (7.4-10.4); MONOCYTES % (AUTO) 10.6 % (2-12); NEUTROPHILS # (AUTO) 6.4 X10'3 (1.8-7.7); NEUTROPHILS % (AUTO) 66.9 % (42-75); PLATELET COUNT 597 X10'3 (140-440); RED BLOOD COUNT 4.03 X10'6 (4.70-6.10); RED CELL DISTRIBUTION WIDTH 18.1 % (11.5-14.5); WHITE BLOOD COUNT 9.6 X10'3 (4.5-11.0)
[2018-05-13 22:26] LABS: ALANINE AMINOTRANSFERASE 15 U/L (12-78); ALBUMIN 2.1 G/DL (3.4-5.0); ALBUMIN/GLOBULIN RATIO 0.4 (1.1-1.5); ALKALINE PHOSPHATASE 90 IU/L (20-180); ANION GAP 11 (8-16); ASPARTATE AMINO TRANSFERASE 18 U/L (10-37); BILIRUBIN,TOTAL 0.4 MG/DL (0.1-1.0); BLOOD UREA NITROGEN 3 MG/DL (7-18); BUN/CREATININE RATIO 4.5 (5.4-32.0); CHLORIDE 101 MMOL/L (99-107); CREATININE 0.67 MG/DL (0.60-1.10); GLUCOSE 83 MG/DL (70-104); LIPASE 70 U/L (73-393); POTASSIUM 3.1 MMOL/L (3.5-5.1); SODIUM 138 MMOL/L (135-145); TOTAL CARBON DIOXIDE 26.2 MMOL/L (24-32); TOTAL PROTEIN 7.4 G/DL (6.4-8.2); eGFR > 90 ML/MIN
[2018-05-13] MEDS ORDERED: dexamethasone sod phosphate 10mg/ml inj IV STA (22:37)
[2018-05-13 23:08] VITALS: BP 131/99
== END 2018-05-13 23:09 | disposition home or self-care (01) ==
LOC: ER 20:29
DX: R10.84 Generalized abdominal pain (principal); R10.30 Lower abdominal pain, unspecified; F12.10 Cannabis abuse, uncomplicated; I10 Essential (primary) hypertension; Z87.19 Personal history of other diseases of the digestive system; R19.7 Diarrhea, unspecified
CPT/HCPCS: 36415; 80053; 83690; 85025; 96361; 96374; 96375; 96376; 99283; J1100; J2270; J2405; J7030

== ENCOUNTER 2018-06-07 16:15 | Emergency (ER) | payer MEDICAID ==
[~2018-06-07] VITALS: Ht 165.1 cm; Wt 54.0 kg
[2018-06-07] MEDS ORDERED: dexamethasone sod phosphate 10mg/ml inj IV STA (16:28)
[2018-06-07] MEDS ORDERED: morphine 4 MG/ML inj SYRINge IV ONE ×2 (16:30→19:25)
[2018-06-07] MEDS ORDERED: normal saline 1000ml 1,000 ML IV ONE (16:30)
[2018-06-07] MEDS ORDERED: ondansetron/PF 4mg/2ml inj IV ONE ×2 (16:30→19:25)
[2018-06-07 17:12] LABS: CLARITY,URINE CLEAR (Clear); COLOR,URINE YELLOW (Yellow); GLUCOSE, URINE NEGATIVE (Neg); KETONES,URINE NEGATIVE (Neg); LEUKOCYTE ESTERASE ,URINE NEGATIVE (Neg); NITRITES, URINE NEGATIVE (Neg); OCCULT BLOOD,URINE TRACE-INTACT (Neg); PROTEIN,URINE NEGATIVE (Neg); UA COLLECTION TYPE URINAL; UROBILINOGEN,URINE 0.2 E.U/dL (0.2-1.0)
[2018-06-07 17:19] LABS: BACTERIA,URINE NONE SEEN /HPF (Neg); MUCUS STRANDS FEW /LPF (Neg); RBC,URINE 0-2 /HPF (0-2); SQUAMOUS EPITHELIAL CELL,UR NONE SEEN /LPF (FEW); WBC,URINE NONE SEEN /HPF (0-4)
[2018-06-07 17:22] LABS: BASOPHILS # (AUTO) 0.1 X10'3 (0-0.2); BASOPHILS % (AUTO) 0.5 % (0-1); EOSINOPHILS # (AUTO) 0.4 X10'3 (0-0.9); EOSINOPHILS % (AUTO) 3.4 % (0-6); LYMPHOCYTES % (AUTO) 16.1 % (21-51); MEAN CORPUSCULAR HEMOGLOBIN 29.6 PG (27.0-31.0); MEAN CORPUSCULAR HGB CONC 33.4 % (33.0-36.5); MEAN CORPUSCULAR VOLUME 88.7 FL (78-98); MEAN PLATELET VOLUME 6.5 FL (7.4-10.4); MONOCYTES # (AUTO) 1.2 X10'3 (0-0.9); MONOCYTES % (AUTO) 9.3 % (2-12); NEUTROPHILS # (AUTO) 8.9 X10'3 (1.8-7.7); NEUTROPHILS % (AUTO) 70.7 % (42-75); PLATELET COUNT 633 X10'3 (140-440); RED BLOOD COUNT 4.06 X10'6 (4.70-6.10); RED CELL DISTRIBUTION WIDTH 16.5 % (11.5-14.5); WHITE BLOOD COUNT 12.6 X10'3 (4.5-11.0)
[2018-06-07 17:25] LABS: ALANINE AMINOTRANSFERASE 15 U/L (12-78); ALBUMIN 1.8 G/DL (3.4-5.0); ALBUMIN/GLOBULIN RATIO 0.4 (1.1-1.5); ALKALINE PHOSPHATASE 102 IU/L (20-180); ANION GAP 8 (8-16); ASPARTATE AMINO TRANSFERASE 14 U/L (10-37); BILIRUBIN,TOTAL 0.2 MG/DL (0.1-1.0); BLOOD UREA NITROGEN 6 MG/DL (7-18); CALCIUM 7.5 MG/DL (8.5-10.1); CHLORIDE 105 MMOL/L (99-107); CREATININE 0.67 MG/DL (0.60-1.10); LIPASE 137 U/L (73-393); POTASSIUM 3.4 MMOL/L (3.5-5.1); SODIUM 140 MMOL/L (135-145); TOTAL CARBON DIOXIDE 27.3 MMOL/L (24-32); TOTAL PROTEIN 6.7 G/DL (6.4-8.2); eGFR > 90 ML/MIN
[2018-06-07 17:26] LABS: GLUCOSE 72 MG/DL (70-104)
--- NOTE | 2018-06-07 17:57 | NUR ---
PT UP AMBULATE TO THE BATHROOM, PT REPORTS THAT "I FEEL BETTER"
--- NOTE | 2018-06-07 18:17 | NUR ---
PT BACK FROM CT
[2018-06-07] MEDS ORDERED: HYDR-4383 PO (19:30)
[2018-06-07] MEDS ORDERED: METR500T PO (19:30)
[2018-06-07] MEDS ORDERED: CIPR-259 PO (19:30)
[2018-06-07 19:58] VITALS: BP 115/66
== END 2018-06-07 20:10 | disposition home or self-care (01) ==
LOC: ER 16:15
DX: K52.9 Noninfective gastroenteritis and colitis, unspecified (principal); I10 Essential (primary) hypertension; K50.90 Crohn's disease, unspecified, without complications; F12.90 Cannabis use, unspecified, uncomplicated; Z79.899 Other long term (current) drug therapy
CPT/HCPCS: 36415; 74176; 80053; 81001; 83690; 85025; 96361; 96374; 96375; 96376; 99284; J1100; J2270; J2405; J7030

== ENCOUNTER 2018-06-13 16:59 | Emergency (ER) | payer MEDICAID ==
[~2018-06-13] VITALS: Ht 165.1 cm; Wt 55.9 kg
[~2018-06-13 16:59] MED LIST changes: +CIPR-259 PO; +HYDR-4383 PO; +METR500T PO
[2018-06-13] MEDS ORDERED: normal saline 1000ML IV soln IVB ONE (17:40)
[2018-06-13] MEDS ORDERED: morphine 4 MG/ML inj SYRINge IV PRN (17:40)
[2018-06-13] MEDS ORDERED: ondansetron/PF 4mg/2ml inj IV ONE (17:40)
[2018-06-13 18:17] LABS: BASOPHILS % (AUTO) 0.2 % (0-1); EOSINOPHILS # (AUTO) 0.3 X10'3 (0-0.9); EOSINOPHILS % (AUTO) 2.4 % (0-6); HEMATOCRIT 35.3 % (42.0-52.0); HEMOGLOBIN 11.7 g/dl (14.0-17.9); LYMPHOCYTES # (AUTO) 1.9 X10'3 (1.1-4.8); LYMPHOCYTES % (AUTO) 16.7 % (21-51); MEAN CORPUSCULAR HEMOGLOBIN 29.5 PG (27.0-31.0); MEAN CORPUSCULAR HGB CONC 33.2 % (33.0-36.5); MEAN CORPUSCULAR VOLUME 88.9 FL (78-98); MEAN PLATELET VOLUME 6.2 FL (7.4-10.4); MONOCYTES # (AUTO) 1.2 X10'3 (0-0.9); MONOCYTES % (AUTO) 10.3 % (2-12); NEUTROPHILS # (AUTO) 8.1 X10'3 (1.8-7.7); NEUTROPHILS % (AUTO) 70.4 % (42-75); PLATELET COUNT 472 X10'3 (140-440); RED BLOOD COUNT 3.97 X10'6 (4.70-6.10); RED CELL DISTRIBUTION WIDTH 17.5 % (11.5-14.5); WHITE BLOOD COUNT 11.5 X10'3 (4.5-11.0)
[2018-06-13 18:29] LABS: ALANINE AMINOTRANSFERASE 16 U/L (12-78); ALBUMIN/GLOBULIN RATIO 0.4 (1.1-1.5); ALKALINE PHOSPHATASE 85 IU/L (20-180); ANION GAP 7 (8-16); ASPARTATE AMINO TRANSFERASE 16 U/L (10-37); BILIRUBIN,TOTAL 0.2 MG/DL (0.1-1.0); BLOOD UREA NITROGEN 12 MG/DL (7-18); BUN/CREATININE RATIO 21.8 (5.4-32.0); CALCIUM 8.1 MG/DL (8.5-10.1); CHLORIDE 105 MMOL/L (99-107); CREATININE 0.55 MG/DL (0.60-1.10); GLUCOSE 90 MG/DL (70-104); LIPASE 158 U/L (73-393); POTASSIUM 3.9 MMOL/L (3.5-5.1); SODIUM 138 MMOL/L (135-145); TOTAL CARBON DIOXIDE 26.5 MMOL/L (24-32); TOTAL PROTEIN 6.8 G/DL (6.4-8.2); eGFR > 90 ML/MIN
[2018-06-13 18:39] VITALS: BP 109/68
[2018-06-13 18:58] LABS: CLARITY,URINE CLEAR (Clear); COLOR,URINE YELLOW (Yellow); GLUCOSE, URINE NEGATIVE (Neg); KETONES,URINE NEGATIVE (Neg); LEUKOCYTE ESTERASE ,URINE NEGATIVE (Neg); NITRITES, URINE NEGATIVE (Neg); OCCULT BLOOD,URINE SMALL (Neg); PROTEIN,URINE NEGATIVE (Neg); UROBILINOGEN,URINE 0.2 E.U/dL (0.2-1.0)
[2018-06-13 19:11] LABS: BACTERIA,URINE NONE SEEN /HPF (Neg); RBC,URINE 0-2 /HPF (0-2); SQUAMOUS EPITHELIAL CELL,UR FEW /LPF (FEW); UA COLLECTION TYPE URINAL; WBC,URINE NONE SEEN /HPF (0-4)
[2018-06-20] MEDS ORDERED: ADAL40PE SUBCUT (17:30)
== END 2018-06-13 19:52 | disposition home or self-care (01) ==
LOC: ER 17:00
DX: R55 Syncope and collapse (principal); R10.84 Generalized abdominal pain; I10 Essential (primary) hypertension; Z79.899 Other long term (current) drug therapy
CPT/HCPCS: 36415; 71045; 80053; 81001; 83690; 85025; 93005; 96374; 96375; 99284; J2270; J2405

== ENCOUNTER 2018-06-20 16:09 | Inpatient (IN) | payer MEDICAID | END 2018-06-23 14:48 | disposition home or self-care (01) | LOC: ER 16:09 → ED HOLD 18:14 → SUR 3N 19:51 ==

== ENCOUNTER 2018-07-02 11:40 | Outpatient (CLI) | payer MEDICAID ==
[~2018-07-02 11:40] MED LIST changes: -CIPR-259 PO; -ESCI10TA54 PO; -HYDR-4383 PO; +LEVO750T46 PO; -MERC50TA16 PO; +METR-159 PO; -METR500T PO
== END 2018-07-02 23:59 | disposition home or self-care (01) ==
LOC: RAD 11:40
PROVIDERS: ATTEND Family Medicine
DX: R55 Syncope and collapse (principal); I10 Essential (primary) hypertension
CPT/HCPCS: 95816

== ENCOUNTER 2018-07-09 16:27 | Inpatient (IN) | payer MEDICAID ==
[~2018-07-09] VITALS: Ht 165.1 cm; Wt 57.3 kg
[2018-07-09 17:25] LABS: BASOPHILS % (AUTO) 0.3 % (0-1); EOSINOPHILS # (AUTO) 0.1 X10'3 (0-0.9); HEMATOCRIT 33.5 % (42.0-52.0); HEMOGLOBIN 11.1 g/dl (14.0-17.9); LYMPHOCYTES # (AUTO) 1.3 X10'3 (1.1-4.8); LYMPHOCYTES % (AUTO) 10.5 % (21-51); MEAN CORPUSCULAR HEMOGLOBIN 28.8 PG (27.0-31.0); MEAN CORPUSCULAR HGB CONC 33.3 g/dL (33.0-36.5); MEAN CORPUSCULAR VOLUME 86.5 FL (78-98); MEAN PLATELET VOLUME 6.4 FL (7.4-10.4); MONOCYTES # (AUTO) 0.9 X10'3 (0-0.9); MONOCYTES % (AUTO) 7.8 % (2-12); NEUTROPHILS # (AUTO) 9.7 X10'3 (1.8-7.7); NEUTROPHILS % (AUTO) 80.4 % (42-75); PLATELET COUNT 480 X10'3 (140-440); RED BLOOD COUNT 3.87 X10'6 (4.70-6.10); RED CELL DISTRIBUTION WIDTH 15.7 % (11.5-14.5)
[2018-07-09 17:31] LABS: ALANINE AMINOTRANSFERASE 15 U/L (12-78); ALBUMIN 2.6 G/DL (3.4-5.0); ALBUMIN/GLOBULIN RATIO 0.6 (1.1-1.5); ALKALINE PHOSPHATASE 72 IU/L (20-180); ANION GAP 12 (8-16); ASPARTATE AMINO TRANSFERASE 17 U/L (10-37); BILIRUBIN,TOTAL 0.4 MG/DL (0.1-1.0); BLOOD UREA NITROGEN 8 MG/DL (7-18); BUN/CREATININE RATIO 10.8 (5.4-32.0); CALCIUM 8.3 MG/DL (8.5-10.1); CHLORIDE 101 MMOL/L (99-107); CREATININE 0.74 MG/DL (0.60-1.10); GLUCOSE 88 MG/DL (70-104); POTASSIUM 3.5 MMOL/L (3.5-5.1); SODIUM 135 MMOL/L (135-145); TOTAL CARBON DIOXIDE 22.4 MMOL/L (24-32); eGFR > 90 ML/MIN
[2018-07-09 17:35] LABS: INR 1.1 INR; PARTIAL THROMBOPLASTIN TIME 31 SECONDS (22-32); PROTHROMBIN TIME 11.4 SECONDS (9.0-12.0)
[2018-07-09] MEDS ORDERED: ondansetron/PF 4mg/2ml inj IV ONE (17:35)
[2018-07-09] MEDS ORDERED: normal saline 1000ML IV soln IVB ONE ×2 (17:35→17:40)
[2018-07-09] MEDS ORDERED: piperacillin/tazo 3.375gm/50ml 50 ML IV ONE (17:35)
[2018-07-09] MEDS ORDERED: iohexol 300mg/ml 100ml inj. ONE (17:56)
[2018-07-09] MEDS: morphine 2 MG/ML inj. syringe IV PRN ×2 (17:57→19:40)
[2018-07-09 19:06] LABS: CLARITY,URINE CLEAR (Clear); COLOR,URINE YELLOW (Yellow); GLUCOSE, URINE NEGATIVE (Neg); KETONES,URINE NEGATIVE (Neg); LEUKOCYTE ESTERASE ,URINE NEGATIVE (Neg); NITRITES, URINE NEGATIVE (Neg); OCCULT BLOOD,URINE SMALL (Neg); PROTEIN,URINE NEGATIVE (Neg); UROBILINOGEN,URINE 0.2 E.U/dL (0.2-1.0)
[2018-07-09 19:10] LABS: UA COLLECTION TYPE CLN CATCH MIDSTREAM
[2018-07-09 19:34] LABS: WBC,URINE 0-4 /HPF (0-4)
[2018-07-09 19:35] LABS: BACTERIA,URINE FEW /HPF (Neg); RBC,URINE 0-2 /HPF (0-2); SQUAMOUS EPITHELIAL CELL,UR FEW /LPF (FEW)
[2018-07-09] MEDS ORDERED: mag hydrox/Alum hydrox/simeth 30ml oral suspension PO PRN (20:10)
[2018-07-09] MEDS ORDERED: ondansetron/PF 4mg/2ml inj IV PRN (20:10)
[2018-07-09] MEDS ORDERED: HYDROcodone/acetaminophen 10/325mg tab PO PRN (20:10)
[2018-07-09] MEDS ORDERED: acetaminophen 325mg tablet PO PRN (20:10)
[2018-07-09] MEDS ORDERED: morphine 4 MG/ML inj SYRINge IV PRN ×2 (20:10)
[2018-07-09] MEDS ORDERED: HYDROcodone/acetaminophen 5mg/325mg tablet PO PRN (20:10)
[2018-07-09] MEDS ORDERED: magnesium hydroxide 30ml (MOM) UD suspension PO PRN (20:10)
[2018-07-09] MEDS: dextrose 5%-1/2 normal saline 1,000 ML IV SCH (20:27)
--- NOTE | 2018-07-09 20:34 | NUR ---
Patient dramatically c/o indigestion, moving about the bed and tearful. Cursing at times. Requestng medication for his indigestion. Patient administered maalox, however, only occasonally sipping the medication. Crying out that the indigestion is bad, encouraged to complete the administration of the medication.
--- NOTE | 2018-07-09 21:25 | NUR ---
Patient in room MAN 352. I have received report from TORIE Cruz and had the opportunity to ask questions and assume patient care.
[2018-07-09 21:50] VITALS: BP 118/69
[2018-07-10] VITALS: BP 111/73
[2018-07-10] MEDS: metroNIDAZOLE-Flagyl 500mg/NS 100 ML IV SCH ×2 (00:22→08:14)
[2018-07-10] MEDS: hydrocortisone sod succ/PF 100mg/2ml inj. IV SCH ×4 (01:38→20:23)
[2018-07-10 06:08] LABS: BASOPHILS % (AUTO) 0.3 % (0-1); EOSINOPHILS % (AUTO) 0.1 % (0-6); HEMATOCRIT 29.9 % (42.0-52.0); HEMOGLOBIN 10.2 g/dl (14.0-17.9); LYMPHOCYTES # (AUTO) 0.3 X10'3 (1.1-4.8); LYMPHOCYTES % (AUTO) 3.7 % (21-51); MEAN CORPUSCULAR HEMOGLOBIN 29.5 PG (27.0-31.0); MEAN CORPUSCULAR VOLUME 86.9 FL (78-98); MONOCYTES # (AUTO) 0.2 X10'3 (0-0.9); NEUTROPHILS # (AUTO) 8.6 X10'3 (1.8-7.7); NEUTROPHILS % (AUTO) 93.9 % (42-75); PLATELET COUNT 366 X10'3 (140-440); RED BLOOD COUNT 3.44 X10'6 (4.70-6.10); WHITE BLOOD COUNT 9.1 X10'3 (4.5-11.0)
--- NOTE | 2018-07-10 06:19 | NUR ---
Problems reprioritized. Patient report given, questions answered & plan of care reviewed with TORIE Dumont and TORIE Hamlin.
[2018-07-10 06:28] LABS: ALBUMIN 2.2 G/DL (3.4-5.0); ANION GAP 9 (8-16); BLOOD UREA NITROGEN 3 MG/DL (7-18); BUN/CREATININE RATIO 4.6 (5.4-32.0); CALCIUM 8.3 MG/DL (8.5-10.1); CHLORIDE 105 MMOL/L (99-107); CREATININE 0.65 MG/DL (0.60-1.10); GLUCOSE 105 MG/DL (70-104); POTASSIUM 3.5 MMOL/L (3.5-5.1); SODIUM 138 MMOL/L (135-145); TOTAL CARBON DIOXIDE 23.7 MMOL/L (24-32); eGFR > 90 ML/MIN
[2018-07-10] MEDS: dextrose 5%-1/2 normal saline 1,000 ML IV SCH ×2 (06:38→16:07)
[2018-07-10 08:00] VITALS: BP 110/74
[2018-07-10] MEDS: piperacillin/tazo 3.375gm/50ml 50 ML IV SCH ×3 (09:26→23:32)
[2018-07-10 11:00] VITALS: BP 107/66
--- NOTE | 2018-07-10 13:06 | NUR ---
Pt. wanted to leave AMA r/t feeling better. States "I don't understand!" and ripped personnel monitor off chest. Mother in room with pt. also distressed stating she cannot get ahold of son's regular doctor. Explain the progress the patient has had while being her, and also explained the need to continue monitoring for infection. Pt. has calmed down at this time- taking a shower. Spoke with pt. to see if he would rather be alone than with family members, pt. ok with mom helping with shower. Efrain Hamlin notified. new tele monitor will be placed after shower. Will cont. to monitor.
[2018-07-10 14:38] LABS: C DIFF ANTIGEN NEGATIVE (NEGATIVE); C DIFF SPECIMEN=DIARRHEA? ACCEPTABLE; C DIFFICILE TOXINS A&B NEGATIVE (Neg)
[2018-07-10] MEDS: morphine 2 MG/ML inj. syringe IV PRN (18:07)
--- NOTE | 2018-07-10 18:30 | NUR ---
Patient in room MAN 352. I have received report from SYD VOGT and had the opportunity to ask questions and assume patient care.
[2018-07-10 19:00] VITALS: BP 105/69
[2018-07-10] MEDS: lactobacillus rhamnosus 10,000 MMU CELLS/CAPSULE PO SCH (20:23)
[2018-07-11] VITALS: BP 120/79
[2018-07-11] MEDS: hydrocortisone sod succ/PF 100mg/2ml inj. IV SCH ×2 (01:53→09:18)
[2018-07-11] MEDS: dextrose 5%-1/2 normal saline 1,000 ML IV SCH ×2 (05:20→12:07)
--- NOTE | 2018-07-11 06:00 | NUR ---
Patient in room MAN 352. I have received report from Shai VOGT and had the opportunity to ask questions and assume patient care.
--- NOTE | 2018-07-11 06:19 | NUR ---
Problems reprioritized. Patient report given, questions answered & plan of care reviewed with PAU VOGT.
[2018-07-11 07:09] LABS: ALBUMIN 2.1 G/DL (3.4-5.0); ANION GAP 10 (8-16); BLOOD UREA NITROGEN 5 MG/DL (7-18); BUN/CREATININE RATIO 7.4 (5.4-32.0); CALCIUM 8.4 MG/DL (8.5-10.1); CHLORIDE 108 MMOL/L (99-107); CREATININE 0.68 MG/DL (0.60-1.10); GLUCOSE 169 MG/DL (70-104); POTASSIUM 3.3 MMOL/L (3.5-5.1); SODIUM 143 MMOL/L (135-145); TOTAL CARBON DIOXIDE 25.3 MMOL/L (24-32); eGFR > 90 ML/MIN
[2018-07-11 07:19] LABS: BASOPHILS % (AUTO) 0 % (0-1); EOSINOPHILS % (AUTO) 0 % (0-6); HEMATOCRIT 29.9 % (42.0-52.0); LYMPHOCYTES # (AUTO) 0.7 X10'3 (1.1-4.8); LYMPHOCYTES % (AUTO) 5.3 % (21-51); MEAN CORPUSCULAR HEMOGLOBIN 29.4 PG (27.0-31.0); MEAN CORPUSCULAR HGB CONC 33.6 g/dL (33.0-36.5); MEAN CORPUSCULAR VOLUME 87.4 FL (78-98); MEAN PLATELET VOLUME 6.9 FL (7.4-10.4); MONOCYTES # (AUTO) 0.6 X10'3 (0-0.9); MONOCYTES % (AUTO) 4.7 % (2-12); NEUTROPHILS # (AUTO) 11.3 X10'3 (1.8-7.7); PLATELET COUNT 388 X10'3 (140-440); RED BLOOD COUNT 3.42 X10'6 (4.70-6.10); RED CELL DISTRIBUTION WIDTH 15.7 % (11.5-14.5); WHITE BLOOD COUNT 12.6 X10'3 (4.5-11.0)
[2018-07-11 07:56] VITALS: BP 103/67
[2018-07-11] MEDS ORDERED: potassium Cl 20 mEq SR tablet PO PRN ×2 (08:20)
[2018-07-11] MEDS ORDERED: magnesium 4gm in 100ml NS 100 ML IV PRN (08:20)
[2018-07-11] MEDS ORDERED: potassium Cl 40MEQ/NS 500ml 500 ML IV PRN ×2 (08:20)
[2018-07-11] MEDS ORDERED: magnesium Cl slow-release 64mg tablet PO PRN (08:20)
[2018-07-11] MEDS: lactobacillus rhamnosus 10,000 MMU CELLS/CAPSULE PO SCH (09:18)
[2018-07-11] MEDS: piperacillin/tazo 3.375gm/50ml 50 ML IV SCH (09:18)
[2018-07-11 11:57] VITALS: BP 109/69
--- NOTE | 2018-07-11 11:58 | NUR ---
MD notified about positive MRSA nasal swab. No new orders at this time.
[2018-07-11] MEDS ORDERED: potassium Cl 20 mEq SR tablet PO ONE (12:00)
[2018-07-11] MEDS ORDERED: AMOX-580 PO (13:02)
--- NOTE | 2018-07-11 14:07 | NUR ---
Patient discharged with all belongings. Patient understands to followup. Walked to front lobby. Family member to take pt home.
== END 2018-07-11 14:09 | disposition home or self-care (01) | DRG 245 ==
LOC: ER 16:27 → ED HOLD 20:07 → SUR 3N 21:29
PROVIDERS: ADMIT Internal Medicine; ATTEND Family Medicine
PROC: BW211ZZ Computerized Tomography (CT Scan) of Abdomen and Pelvis using Low Osmolar Contrast (ICD-10-PCS; principal; 2018-07-09)
DX: K51.014 Ulcerative (chronic) pancolitis with abscess (principal); K61.1 Rectal abscess; D63.8 Anemia in other chronic diseases classified elsewhere; G89.29 Other chronic pain; I10 Essential (primary) hypertension
CPT/HCPCS: 36415; 71045; 74177; 80048; 80053; 81001; 83605; 84145; 85025; 85610; 85730; 87040; 87045; 87046; 87070; 87324; 87449; 96365; 96375; 96376; 99285; G0378; J1720; J2270; J2405; J2543; J3490; Q9967

== ENCOUNTER 2018-08-25 20:19 | Emergency (ER) | payer MEDICAID ==
[~2018-08-25] VITALS: Ht 165.1 cm; Wt 54.0 kg
[2018-08-25 20:53] VITALS: BP 103/69
[2018-08-25] MEDS ORDERED: morphine 4 MG/ML inj SYRINge IM ONE (23:10)
[2018-08-25] MEDS ORDERED: ondansetron/PF 4mg/2ml inj IV ONE (23:35)
[2018-08-25 23:42] LABS: BASOPHILS % (AUTO) 0.3 % (0-1); EOSINOPHILS # (AUTO) 0.1 X10'3 (0-0.9); EOSINOPHILS % (AUTO) 0.8 % (0-6); HEMATOCRIT 31.2 % (42.0-52.0); HEMOGLOBIN 10.6 g/dl (14.0-17.9); LYMPHOCYTES # (AUTO) 1.9 X10'3 (1.1-4.8); LYMPHOCYTES % (AUTO) 11.3 % (21-51); MEAN CORPUSCULAR HEMOGLOBIN 28.4 PG (27.0-31.0); MEAN CORPUSCULAR HGB CONC 34.1 g/dL (33.0-36.5); MEAN CORPUSCULAR VOLUME 83.5 FL (78-98); MEAN PLATELET VOLUME 6.3 FL (7.4-10.4); MONOCYTES # (AUTO) 1.5 X10'3 (0-0.9); MONOCYTES % (AUTO) 9.1 % (2-12); NEUTROPHILS # (AUTO) 13.2 X10'3 (1.8-7.7); NEUTROPHILS % (AUTO) 78.5 % (42-75); PLATELET COUNT 553 X10'3 (140-440); RED BLOOD COUNT 3.74 X10'6 (4.70-6.10); RED CELL DISTRIBUTION WIDTH 15.8 % (11.5-14.5); WHITE BLOOD COUNT 16.8 X10'3 (4.5-11.0)
[2018-08-25 23:54] LABS: ALANINE AMINOTRANSFERASE 10 U/L (12-78); ALBUMIN/GLOBULIN RATIO 0.4 (1.1-1.5); ALKALINE PHOSPHATASE 110 IU/L (20-180); ANION GAP 10 (8-16); ASPARTATE AMINO TRANSFERASE 12 U/L (10-37); BILIRUBIN,TOTAL 0.3 MG/DL (0.1-1.0); BLOOD UREA NITROGEN 5 MG/DL (7-18); BUN/CREATININE RATIO 6.4 (5.4-32.0); CALCIUM 8.4 MG/DL (8.5-10.1); CHLORIDE 98 MMOL/L (99-107); CREATININE 0.78 MG/DL (0.60-1.10); GLUCOSE 87 MG/DL (70-104); LIPASE 188 U/L (73-393); POTASSIUM 3.1 MMOL/L (3.5-5.1); SODIUM 135 MMOL/L (135-145); TOTAL PROTEIN 6.6 G/DL (6.4-8.2); eGFR > 90 ML/MIN
[2018-08-26] MEDS ORDERED: potassium Cl 20 mEq SR tablet PO ONE (00:50)
[2018-08-26] MEDS ORDERED: morphine 4 MG/ML inj SYRINge IV ONE (00:50)
== END 2018-08-26 01:42 | disposition home or self-care (01) ==
LOC: ER 20:20
DX: K50.90 Crohn's disease, unspecified, without complications (principal); I10 Essential (primary) hypertension
CPT/HCPCS: 36415; 80053; 83690; 85025; 96372; 96374; 96375; 99283; J2270; J2405

== ENCOUNTER 2018-08-29 17:45 | Inpatient (IN) | payer MEDICAID ==
[~2018-08-29] VITALS: Ht 165.1 cm; Wt 50.0 kg
[2018-08-29] MEDS ORDERED: ondansetron/PF 4mg/2ml inj IV ONE (18:50)
[2018-08-29] MEDS ORDERED: normal saline 1000ML IV soln IVB ONE ×2 (18:50→18:55)
[2018-08-29] MEDS ORDERED: iohexol 300mg/ml 100ml inj. ONE (18:54)
[2018-08-29] MEDS: morphine 4 MG/ML inj SYRINge IV PRN ×2 (19:02→20:03)
[2018-08-29 19:09] LABS: MEAN CORPUSCULAR HEMOGLOBIN 28.3 PG (27.0-31.0)
[2018-08-29 19:13] LABS: BASOPHILS % (AUTO) 0.3 % (0-1); EOSINOPHILS % (AUTO) 0.3 % (0-6); HEMATOCRIT 35.6 % (42.0-52.0); LYMPHOCYTES # (AUTO) 1.2 X10'3 (1.1-4.8); LYMPHOCYTES % (AUTO) 11.4 % (21-51); MEAN CORPUSCULAR HGB CONC 33.8 g/dL (33.0-36.5); MEAN CORPUSCULAR VOLUME 83.8 FL (78-98); MEAN PLATELET VOLUME 6.5 FL (7.4-10.4); MONOCYTES % (AUTO) 9.4 % (2-12); NEUTROPHILS # (AUTO) 8.6 X10'3 (1.8-7.7); NEUTROPHILS % (AUTO) 78.6 % (42-75); PLATELET COUNT 470 X10'3 (140-440); RED BLOOD COUNT 4.25 X10'6 (4.70-6.10); WHITE BLOOD COUNT 10.9 X10'3 (4.5-11.0)
[2018-08-29 19:23] LABS: ALANINE AMINOTRANSFERASE 10 U/L (12-78); ALBUMIN 1.8 G/DL (3.4-5.0); ALBUMIN/GLOBULIN RATIO 0.4 (1.1-1.5); ALKALINE PHOSPHATASE 108 IU/L (20-180); ANION GAP 10 (8-16); ASPARTATE AMINO TRANSFERASE 25 U/L (10-37); BILIRUBIN,TOTAL 0.3 MG/DL (0.1-1.0); BLOOD UREA NITROGEN 5 MG/DL (7-18); BUN/CREATININE RATIO 5.1 (5.4-32.0); CALCIUM 8.5 MG/DL (8.5-10.1); CHLORIDE 97 MMOL/L (99-107); CREATININE 0.98 MG/DL (0.60-1.10); GLUCOSE 90 MG/DL (70-104); LIPASE 93 U/L (73-393); POTASSIUM 3.5 MMOL/L (3.5-5.1); SODIUM 134 MMOL/L (135-145); TOTAL CARBON DIOXIDE 26.8 MMOL/L (24-32); TOTAL PROTEIN 6.4 G/DL (6.4-8.2); eGFR > 90 ML/MIN
[2018-08-29 19:30] LABS: INR 1.3 INR
[2018-08-29 19:33] LABS: CLARITY,URINE CLOUDY (Clear); COLOR,URINE RED (Yellow); GLUCOSE, URINE NEGATIVE (Neg); KETONES,URINE NEGATIVE (Neg); LEUKOCYTE ESTERASE ,URINE SMALL (Neg); OCCULT BLOOD,URINE LARGE (Neg); PH,URINE 6.5 (4.8-8.0); PROTEIN,URINE 100 mg/dl (Neg); UROBILINOGEN,URINE 0.2 E.U/dL (0.2-1.0)
[2018-08-29 19:51] LABS: UA COLLECTION TYPE VOIDED
[2018-08-29 19:52] LABS: NITRITES, URINE NEGATIVE (Neg)
[2018-08-29 19:54] LABS: BACTERIA,URINE NONE SEEN /HPF (Neg); RBC,URINE TNTC /HPF (0-2)
[2018-08-29 19:55] LABS: SQUAMOUS EPITHELIAL CELL,UR FEW /LPF (FEW)
[2018-08-29 19:58] LABS: MUCUS STRANDS MODERATE /LPF (Neg)
[2018-08-29 19:59] LABS: COARSE GRANULAR CAST 0-3 /LPF (NEGATIVE); FINE GRANULAR CAST 0-3 /LPF (NEGATIVE)
--- NOTE | 2018-08-29 20:07 | NUR ---
PT MEDICATED WITH MORPHINE FOR AN INCREASE IN HIS ABD PAIN.
--- NOTE | 2018-08-29 20:40 | NUR ---
PAIN IMPROVED AFTER MORPHINE, RESTING QUIETLY.
--- NOTE | 2018-08-29 22:13 | NUR ---
PT SLEEPING, AWAITING POTENTIAL TRANSFER TO [facility].
[2018-08-29] MEDS ORDERED: PRED10TA23 PO (22:51)
[2018-08-29] MEDS ORDERED: mag hydrox/Alum hydrox/simeth 30ml oral suspension PO PRN (23:15)
[2018-08-29] MEDS ORDERED: magnesium hydroxide 30ml (MOM) UD suspension PO PRN (23:15)
[2018-08-29] MEDS ORDERED: acetaminophen 325mg tablet PO PRN ×2 (23:15)
[2018-08-29] MEDS: metroNIDAZOLE-Flagyl 500mg/NS 100 ML IV SCH (23:40)
--- NOTE | 2018-08-30 00:10 | NUR ---
Received report from TORIE Casper from ER pending patients arrival.
[2018-08-30] MEDS: normal saline 1000ml 1,000 ML IV SCH ×2 (00:36→13:28)
[2018-08-30] MEDS: ondansetron/PF 4mg/2ml inj IV PRN ×3 (00:36→18:56)
[2018-08-30 00:37] VITALS: BP 104/71
[2018-08-30] MEDS: levoFLOXACIN-Levaquin 500mg/D5 100 ML IV SCH (00:37)
[2018-08-30] MEDS: metoclopramide 5 mg/ml inj IV PRN (02:25)
[2018-08-30 06:00] VITALS: BP 105/64
--- NOTE | 2018-08-30 06:30 | NUR ---
Problems reprioritized. Patient report given, questions answered & plan of care reviewed with TORIE Velasquez.
[2018-08-30 06:36] LABS: BASOPHILS % (AUTO) 0.1 % (0-1); EOSINOPHILS % (AUTO) 0.1 % (0-6); HEMATOCRIT 27.3 % (42.0-52.0); HEMOGLOBIN 9.2 g/dl (14.0-17.9); LYMPHOCYTES # (AUTO) 0.5 X10'3 (1.1-4.8); LYMPHOCYTES % (AUTO) 4.8 % (21-51); MEAN CORPUSCULAR HEMOGLOBIN 28.2 PG (27.0-31.0); MEAN CORPUSCULAR HGB CONC 33.5 g/dL (33.0-36.5); MEAN PLATELET VOLUME 6.6 FL (7.4-10.4); MONOCYTES # (AUTO) 1.1 X10'3 (0-0.9); MONOCYTES % (AUTO) 10.5 % (2-12); NEUTROPHILS # (AUTO) 8.7 X10'3 (1.8-7.7); NEUTROPHILS % (AUTO) 84.5 % (42-75); PLATELET COUNT 349 X10'3 (140-440); RED BLOOD COUNT 3.25 X10'6 (4.70-6.10); RED CELL DISTRIBUTION WIDTH 15.8 % (11.5-14.5); WHITE BLOOD COUNT 10.2 X10'3 (4.5-11.0)
--- NOTE | 2018-08-30 06:36 | NUR ---
Problems reprioritized. Patient report given, questions answered & plan of care reviewed with TORIE Velasquez.
[2018-08-30 06:39] LABS: ANION GAP 7 (8-16); BLOOD UREA NITROGEN 5 MG/DL (7-18); CHLORIDE 103 MMOL/L (99-107); GLUCOSE 88 MG/DL (70-104); POTASSIUM 3.2 MMOL/L (3.5-5.1); SODIUM 137 MMOL/L (135-145); TOTAL CARBON DIOXIDE 27.1 MMOL/L (24-32)
[2018-08-30 06:40] LABS: ALBUMIN 1.4 G/DL (3.4-5.0); BUN/CREATININE RATIO 6.3 (5.4-32.0); CALCIUM 7.7 MG/DL (8.5-10.1); eGFR > 90 ML/MIN
[2018-08-30] MEDS: morphine 4 MG/ML inj SYRINge IV PRN (07:56)
[2018-08-30] MEDS: metroNIDAZOLE-Flagyl 500mg/NS 100 ML IV SCH ×3 (07:56→23:31)
[2018-08-30] MEDS ORDERED: prednisone 10mg tablet PO SCH (08:00)
[2018-08-30 10:00] VITALS: BP 100/62
[2018-08-30 18:00] VITALS: BP 108/72
[2018-08-30] MEDS ORDERED: potassium Cl 40MEQ/NS 500ml 500 ML IV PRN ×2 (18:20)
[2018-08-30] MEDS ORDERED: potassium Cl 20 mEq SR tablet PO PRN ×2 (18:20)
--- NOTE | 2018-08-30 18:41 | NUR ---
Malnutrition consult: Pt admit w/ abdominal pain r/t hx UC and Chron's per MD consult: Pt currently on regular diet refusing meals r/t nausea, vomiting, and diarrhea today. Currently on c.diff isolation w/ LBM 08/29. Pt not appropriate for low-residue diet guidelines at this time; will need ed once stable prior to d/c. Given pt normal strength, no edema/wounds, pt current and only prior wts both "pt stated" unable to accurately determine wt loss hx. Reported 23# wt loss per consult but in EMR says "no" under wt loss hx. Will monitor for additional malnutrition criteria this admit but at this time pt does not qualify. Rec: 1. advance diet per MD to low-residue 2. monitor for ONS needs 3. low-residue diet ed once stable prior to d/c Addendum: 08/30/18 at [address] Amended: Links added.
[2018-08-30] MEDS: HYDROcodone/acetaminophen 5mg/325mg tablet PO PRN ×2 (19:40→23:46)
[2018-08-30] MEDS: lactobacillus rhamnosus 10,000 MMU CELLS/CAPSULE PO SCH (20:00)
[2018-08-30] MEDS: methylPREDNISolone sod succ 125mg/2ml vial IV SCH (20:21)
[2018-08-30 22:00] VITALS: BP 100/70
[2018-08-31] MEDS: levoFLOXACIN-Levaquin 500mg/D5 100 ML IV SCH ×2 (01:04→23:47)
[2018-08-31] MEDS: normal saline 1000ml 1,000 ML IV SCH ×3 (01:05→15:38)
[2018-08-31] MEDS: ondansetron/PF 4mg/2ml inj IV PRN ×2 (03:05→11:34)
[2018-08-31] MEDS: HYDROcodone/acetaminophen 5mg/325mg tablet PO PRN ×2 (04:55→21:01)
[2018-08-31 07:09] VITALS: BP 96/64
[2018-08-31 08:38] LABS: BASOPHILS % (AUTO) 0.1 % (0-1); EOSINOPHILS % (AUTO) 0 % (0-6); HEMATOCRIT 29.6 % (42.0-52.0); HEMOGLOBIN 9.8 g/dl (14.0-17.9); LYMPHOCYTES # (AUTO) 0.5 X10'3 (1.1-4.8); LYMPHOCYTES % (AUTO) 5.7 % (21-51); MEAN CORPUSCULAR HEMOGLOBIN 28.1 PG (27.0-31.0); MEAN CORPUSCULAR HGB CONC 33.1 g/dL (33.0-36.5); MEAN CORPUSCULAR VOLUME 84.7 FL (78-98); MEAN PLATELET VOLUME 6.5 FL (7.4-10.4); MONOCYTES # (AUTO) 0.6 X10'3 (0-0.9); MONOCYTES % (AUTO) 6.4 % (2-12); NEUTROPHILS # (AUTO) 8.3 X10'3 (1.8-7.7); NEUTROPHILS % (AUTO) 87.8 % (42-75); PLATELET COUNT 356 X10'3 (140-440); RED BLOOD COUNT 3.49 X10'6 (4.70-6.10); RED CELL DISTRIBUTION WIDTH 16.2 % (11.5-14.5); WHITE BLOOD COUNT 9.5 X10'3 (4.5-11.0)
[2018-08-31 08:42] LABS: ALBUMIN 1.4 G/DL (3.4-5.0); ANION GAP 6 (8-16); BLOOD UREA NITROGEN 6 MG/DL (7-18); BUN/CREATININE RATIO 7.1 (5.4-32.0); CALCIUM 7.9 MG/DL (8.5-10.1); CHLORIDE 106 MMOL/L (99-107); CREATININE 0.85 MG/DL (0.60-1.10); GLUCOSE 113 MG/DL (70-104); MAGNESIUM 1.6 MG/DL (1.5-2.4); SODIUM 140 MMOL/L (135-145); TOTAL CARBON DIOXIDE 27.6 MMOL/L (24-32); eGFR > 90 ML/MIN
[2018-08-31 09:55] LABS: C DIFF ANTIGEN NEGATIVE (NEGATIVE); C DIFF SPECIMEN=DIARRHEA? ACCEPTABLE; C DIFFICILE TOXINS A&B NEGATIVE (Neg)
[2018-08-31] MEDS: lactobacillus rhamnosus 10,000 MMU CELLS/CAPSULE PO SCH ×2 (11:09→19:42)
[2018-08-31] MEDS: metroNIDAZOLE-Flagyl 500mg/NS 100 ML IV SCH ×3 (11:34→23:47)
[2018-08-31] MEDS: HYDROmorphone inj. 0.5 MG/0.5 ML DISP.SYRIN IV PRN ×4 (11:34→23:47)
[2018-08-31] MEDS: methylPREDNISolone sod succ 125mg/2ml vial IV SCH ×2 (11:35→19:42)
[2018-08-31] MEDS: metoclopramide 5 mg/ml inj IV PRN (16:11)
[2018-08-31 17:31] VITALS: BP 103/69
[2018-09-01] MEDS: normal saline 1000ml 1,000 ML IV SCH ×3 (01:11→21:11)
[2018-09-01] MEDS: HYDROmorphone inj. 0.5 MG/0.5 ML DISP.SYRIN IV PRN ×4 (04:07→20:03)
[2018-09-01 06:00] VITALS: BP 104/70
[2018-09-01 07:47] LABS: BASOPHILS % (AUTO) 0.1 % (0-1); EOSINOPHILS % (AUTO) 0.2 % (0-6); HEMATOCRIT 28.8 % (42.0-52.0); HEMOGLOBIN 9.5 g/dl (14.0-17.9); LYMPHOCYTES # (AUTO) 1.2 X10'3 (1.1-4.8); LYMPHOCYTES % (AUTO) 9.3 % (21-51); MEAN CORPUSCULAR HEMOGLOBIN 27.9 PG (27.0-31.0); MEAN CORPUSCULAR VOLUME 84.4 FL (78-98); MEAN PLATELET VOLUME 6.4 FL (7.4-10.4); MONOCYTES # (AUTO) 1.3 X10'3 (0-0.9); MONOCYTES % (AUTO) 10.4 % (2-12); PLATELET COUNT 350 X10'3 (140-440); RED CELL DISTRIBUTION WIDTH 15.8 % (11.5-14.5); WHITE BLOOD COUNT 12.5 X10'3 (4.5-11.0)
[2018-09-01 07:53] LABS: ALBUMIN 1.4 G/DL (3.4-5.0); ANION GAP 6 (8-16); BLOOD UREA NITROGEN 8 MG/DL (7-18); BUN/CREATININE RATIO 10.1 (5.4-32.0); CALCIUM 8.1 MG/DL (8.5-10.1); CHLORIDE 110 MMOL/L (99-107); CREATININE 0.79 MG/DL (0.60-1.10); GLUCOSE 91 MG/DL (70-104); MAGNESIUM 1.5 MG/DL (1.5-2.4); POTASSIUM 3.5 MMOL/L (3.5-5.1); SODIUM 141 MMOL/L (135-145); TOTAL CARBON DIOXIDE 24.8 MMOL/L (24-32); eGFR > 90 ML/MIN
[2018-09-01 08:48] LABS: PLATELET ESTIMATE NORMAL; TOTAL CELLS COUNTED 100; TOXIC GRANULATION 1+
[2018-09-01] MEDS: methylPREDNISolone sod succ 125mg/2ml vial IV SCH ×2 (09:09→20:02)
[2018-09-01] MEDS: metroNIDAZOLE-Flagyl 500mg/NS 100 ML IV SCH ×3 (09:09→23:32)
[2018-09-01] MEDS: lactobacillus rhamnosus 10,000 MMU CELLS/CAPSULE PO SCH ×3 (09:09→20:02)
[2018-09-01 11:00] VITALS: BP 96/68
--- NOTE | 2018-09-01 18:10 | NUR ---
Initial: Pt admit w/ Chron's flare up and hx Chron's since young teen. Pt seen at bedside for written/verbal low-residue diet w/ RD contact information provided. Pt sees MD at [facility] and reports receiving extensive ed. Pt provided verbal example of bland diet he follows during flare-ups and reports lactose-intolerance. Dietary notified. Pt reports PCP trying to have him gain weight by eating as much as he can of foods he tolerates. Pt has had nausea/vomiting/diarrhea since admit and also has perirectal abscess w/ possible fistula per MD note. Per pt today is first day since admit 08/30 that he is able to keep food down. Pt to transfer to [facility] for further care per MD note. Will continue to monitor. Rec: 1. advance diet per MD to low-residue 2. monitor for ONS needs once PO tolerated 3. monitor for additional food preferences 4. weekly wts Addendum: 09/01/18 at [address] Amended: Links added.
[2018-09-01] MEDS ORDERED: morphine 4 MG/ML inj SYRINge IV PRN (20:15)
[2018-09-01 21:00] VITALS: BP 109/70
[2018-09-02] MEDS: levoFLOXACIN-Levaquin 500mg/D5 100 ML IV SCH (00:34)
[2018-09-02] MEDS ORDERED: temazepam 15mg capsule PO PRN ×2 (05:25→05:32)
[2018-09-02] MEDS: LORazepam 1 MG tablet PO PRN ×3 (05:39→17:19)
--- NOTE | 2018-09-02 06:39 | NUR ---
Problems reprioritized. Patient report given, questions answered & plan of care reviewed with TORIE Rose. Addendum: 09/02/18 at 0640 by Sarika Panchal RN Amended: Links added.
[2018-09-02] MEDS: normal saline 1000ml 1,000 ML IV SCH (07:11)
[2018-09-02] MEDS: lactobacillus rhamnosus 10,000 MMU CELLS/CAPSULE PO SCH (08:00)
[2018-09-02] MEDS: metroNIDAZOLE-Flagyl 500mg/NS 100 ML IV SCH ×2 (08:00→17:07)
[2018-09-02 08:42] LABS: ALBUMIN 1.4 G/DL (3.4-5.0); ANION GAP 4 (8-16); BLOOD UREA NITROGEN 4 MG/DL (7-18); BUN/CREATININE RATIO 5.7 (5.4-32.0); CALCIUM 7.7 MG/DL (8.5-10.1); CHLORIDE 110 MMOL/L (99-107); GLUCOSE 116 MG/DL (70-104); MAGNESIUM 1.5 MG/DL (1.5-2.4); POTASSIUM 3.2 MMOL/L (3.5-5.1); SODIUM 140 MMOL/L (135-145); TOTAL CARBON DIOXIDE 26.4 MMOL/L (24-32); eGFR > 90 ML/MIN
[2018-09-02 08:45] LABS: HEMOGLOBIN 9.2 g/dl (14.0-17.9); MEAN CORPUSCULAR HEMOGLOBIN 28.1 PG (27.0-31.0); RED BLOOD COUNT 3.29 X10'6 (4.70-6.10)
[2018-09-02 08:47] LABS: BASOPHILS % (AUTO) 0.1 % (0-1); EOSINOPHILS % (AUTO) 0 % (0-6); HEMATOCRIT 27.8 % (42.0-52.0); LYMPHOCYTES # (AUTO) 0.6 X10'3 (1.1-4.8); MEAN CORPUSCULAR HGB CONC 33.3 g/dL (33.0-36.5); MEAN CORPUSCULAR VOLUME 84.4 FL (78-98); MEAN PLATELET VOLUME 6.6 FL (7.4-10.4); MONOCYTES # (AUTO) 0.6 X10'3 (0-0.9); NEUTROPHILS # (AUTO) 7.3 X10'3 (1.8-7.7); NEUTROPHILS % (AUTO) 85.9 % (42-75); PLATELET COUNT 342 X10'3 (140-440); RED CELL DISTRIBUTION WIDTH 15.7 % (11.5-14.5); WHITE BLOOD COUNT 8.5 X10'3 (4.5-11.0)
--- NOTE | 2018-09-02 09:38 | NUR ---
Patient states that IV is very painful, unable to give solumedrol or flagyl until a new IV is started
--- NOTE | 2018-09-02 10:03 | NUR ---
Attempted to flush IV, patient expressed extreme discomfort. Unable to give IV meds Addendum: 09/02/18 at 1005 by Hollie MCKEON Amended: Links added.
--- NOTE | 2018-09-02 10:52 | NUR ---
Patient is agitated and upset. At this time his IV is burning with NS. DC and patients mother requested he be allowed to just rest quietly. Denied a new piv at this time. Requested ativan, however it was given 5 hr earlier and ordered q6h. Explained to pt and mother.
[2018-09-02] MEDS: methylPREDNISolone sod succ 125mg/2ml vial IV SCH (17:19)
[2018-09-03] MEDS ORDERED: metroNIDAZOLE 500mg tablet PO SCH
[2018-09-03] MEDS ORDERED: levoFLOXACIN 500mg tablet PO SCH (11:00)
== END 2018-09-02 18:05 | disposition short-term general hospital (02) | DRG 245 ==
LOC: ER 17:46 → ORTHO 4S 08-30 00:37
PROVIDERS: ADMIT Hospitalist; ATTEND Family Medicine
PROC: BW211ZZ Computerized Tomography (CT Scan) of Abdomen and Pelvis using Low Osmolar Contrast (ICD-10-PCS; principal; 2018-08-29)
DX: K50.914 Crohn's disease, unspecified, with abscess (principal); K61.1 Rectal abscess; E87.6 Hypokalemia; I10 Essential (primary) hypertension; K62.89 Other specified diseases of anus and rectum; R19.7 Diarrhea, unspecified
CPT/HCPCS: 36415; 74177; 80048; 80053; 81001; 83690; 83735; 85025; 85610; 87045; 87046; 87070; 87088; 87324; 87449; 96361; 96374; 99285; G0378; J1170; J1956; J2270; J2405; J2765; J2930; J3480; J3490; J7030; J7512; Q9967

== ENCOUNTER 2018-11-25 11:28 | Inpatient (IN) | payer MEDICAID ==
[~2018-11-25] VITALS: Ht 165.1 cm; Wt 48.2 kg
[~2018-11-25 11:28] MED LIST changes: -ADAL40PE SUBCUT; -LEVO750T46 PO; -METR-159 PO; +PRED10TA23 PO; -PRED20TA PO
[2018-11-25 12:09] LABS: BASOPHILS # (AUTO) 0.1 X10'3 (0-0.2); BASOPHILS % (AUTO) 0.2 % (0-1); EOSINOPHILS # (AUTO) 0.2 X10'3 (0-0.9); HEMOGLOBIN 12.8 g/dl (14.0-17.9); LYMPHOCYTES # (AUTO) 2.4 X10'3 (1.1-4.8); MEAN CORPUSCULAR HGB CONC 32.6 g/dL (33.0-36.5); MEAN PLATELET VOLUME 6.7 FL (7.4-10.4)
[2018-11-25 12:11] LABS: EOSINOPHILS % (AUTO) 0.5 % (0-6); HEMATOCRIT 39.1 % (42.0-52.0); LYMPHOCYTES % (AUTO) 6.8 % (21-51); MEAN CORPUSCULAR HEMOGLOBIN 28.6 PG (27.0-31.0); MEAN CORPUSCULAR VOLUME 87.6 FL (78-98); MONOCYTES # (AUTO) 2.9 X10'3 (0-0.9); MONOCYTES % (AUTO) 8.3 % (2-12); NEUTROPHILS # (AUTO) 29.3 X10'3 (1.8-7.7); NEUTROPHILS % (AUTO) 84.2 % (42-75); PLATELET COUNT 842 X10'3 (140-440); RED BLOOD COUNT 4.47 X10'6 (4.70-6.10); RED CELL DISTRIBUTION WIDTH 15.3 % (11.5-14.5)
[2018-11-25 12:15] LABS: WHITE BLOOD COUNT 34.8 X10'3 (4.5-11.0)
[2018-11-25 12:29] LABS: PLATELET ESTIMATE INCREASED; TOTAL CELLS COUNTED 100
[2018-11-25 12:30] LABS: ALANINE AMINOTRANSFERASE 11 U/L (12-78); ALBUMIN 2.4 G/DL (3.4-5.0); ALBUMIN/GLOBULIN RATIO 0.5 (1.1-1.5); ALKALINE PHOSPHATASE 151 IU/L (20-180); ANION GAP 16 (8-16); ASPARTATE AMINO TRANSFERASE 18 U/L (10-37); BILIRUBIN,TOTAL 0.7 MG/DL (0.1-1.0); BLOOD UREA NITROGEN 3 MG/DL (7-18); BUN/CREATININE RATIO 2.8 (5.4-32.0); CALCIUM 8.8 MG/DL (8.5-10.1); CHLORIDE 95 MMOL/L (99-107); CREATININE 1.07 MG/DL (0.60-1.10); GLUCOSE 109 MG/DL (70-104); LARGE PLATELETS FEW; POTASSIUM 3.6 MMOL/L (3.5-5.1); SODIUM 135 MMOL/L (135-145); TOTAL PROTEIN 7.7 G/DL (6.4-8.2); eGFR 88 ML/MIN
[2018-11-25] MEDS ORDERED: LORazepam 2 mg/ml vial IV ONE (12:35)
[2018-11-25] MEDS ORDERED: diphenhydrAMINE 50 mg/ml inj IV ONE (12:35)
[2018-11-25] MEDS ORDERED: normal saline 1000ML IV soln IVB ONE ×3 (12:35→16:00)
[2018-11-25] MEDS ORDERED: metoclopramide 5 mg/ml inj IV ONE (12:35)
[2018-11-25] MEDS ORDERED: morphine 4 MG/ML inj SYRINge IV ONE (12:35)
[2018-11-25] MEDS ORDERED: glycopyrrolate 0.2mg/ml inj IV ONE (12:55)
[2018-11-25] MEDS ORDERED: iohexol 300mg/ml 100ml inj. ONE (13:45)
--- NOTE | 2018-11-25 14:35 | NUR ---
PT OUT TO CT
--- NOTE | 2018-11-25 14:53 | NUR ---
PT RETURNS FROM CT
[2018-11-25] MEDS ORDERED: piperacillin/tazo 3.375gm/50ml 50 ML IV ONE (14:55)
[2018-11-25 15:28] LABS: CLARITY,URINE SLIGHTLY CLOUDY (Clear); COLOR,URINE STRAW (Yellow); GLUCOSE, URINE NEGATIVE (Neg); KETONES,URINE NEGATIVE (Neg); LEUKOCYTE ESTERASE ,URINE TRACE (Neg); NITRITES, URINE NEGATIVE (Neg); OCCULT BLOOD,URINE LARGE (Neg); PH,URINE 6.5 (4.8-8.0); PROTEIN,URINE NEGATIVE (Neg); UROBILINOGEN,URINE 0.2 E.U/dL (0.2-1.0)
[2018-11-25 15:30] LABS: UA COLLECTION TYPE URINAL
[2018-11-25 15:38] LABS: RBC,URINE TNTC /HPF (0-2)
[2018-11-25 15:39] LABS: BACTERIA,URINE FEW /HPF (Neg); SQUAMOUS EPITHELIAL CELL,UR FEW /LPF (FEW)
[2018-11-25] MEDS ORDERED: NO HOME MEDS (16:03)
[2018-11-25] MEDS ORDERED: acetaminophen 325mg tablet PO PRN ×2 (16:30)
[2018-11-25] MEDS ORDERED: HYDROcodone/acetaminophen 10/325mg tab PO PRN (16:30)
[2018-11-25] MEDS ORDERED: potassium CL 10mEq/100ml bag 100 ML IV PRN ×2 (16:30)
[2018-11-25] MEDS ORDERED: magnesium hydroxide 30ml (MOM) UD suspension PO PRN (16:30)
[2018-11-25] MEDS ORDERED: mag hydrox/Alum hydrox/simeth 30ml oral suspension PO PRN (16:30)
[2018-11-25] MEDS ORDERED: magnesium 2GM in 50ml NS 50 ML IV PRN (16:30)
[2018-11-25] MEDS ORDERED: HYDROcodone/acetaminophen 5mg/325mg tablet PO PRN (16:30)
[2018-11-25] MEDS ORDERED: magnesium 4gm in 100ml NS 100 ML IV PRN (16:30)
[2018-11-25] MEDS ORDERED: HYDROmorphone inj. 0.5 MG/0.5 ML DISP.SYRIN IV PRN (16:30)
[2018-11-25] MEDS: normal saline 1000ml 1,000 ML IV SCH (16:54)
[2018-11-25] MEDS: K and/or MAG REPLACEMENT MC SCH (16:54)
[2018-11-25 17:06] LABS: PHOSPHORUS 3.8 MG/DL (2.3-4.5)
--- NOTE | 2018-11-25 18:42 | NUR ---
PT SLEEPING. MOTHER AT BEDSIDE. SHE IS UPDATED ON PLAN OF CARE. PT HAS A ROOM UPSTAIRS AND I WILL CALL REPORTS TY. HE ALSO HAS DILAUDID AVAILABLE BUT IT IS IN PHARMACY AND AN RN WILL NEED TO RUN DOWN TO PICK IT UP.
[2018-11-25] MEDS: HYDROmorphone 1 mg/ml syringe IV PRN (19:13)
[2018-11-25 20:00] VITALS: BP 106/58
[2018-11-25] MEDS: ondansetron/PF 4mg/2ml inj IV PRN (20:39)
[2018-11-25] MEDS ORDERED: temazepam 15mg capsule PO PRN (21:00)
[2018-11-25 23:50] VITALS: BP 103/61
[2018-11-26] MEDS: normal saline 1000ml 1,000 ML IV SCH ×2 (01:00→10:51)
[2018-11-26] MEDS: HYDROmorphone 1 mg/ml syringe IV PRN ×4 (01:04→21:21)
[2018-11-26 05:10] LABS: BASOPHILS # (AUTO) 0.1 X10'3 (0-0.2); BASOPHILS % (AUTO) 0.5 % (0-1); EOSINOPHILS # (AUTO) 0.3 X10'3 (0-0.9); EOSINOPHILS % (AUTO) 1.7 % (0-6); HEMATOCRIT 26.7 % (42.0-52.0); HEMOGLOBIN 8.9 g/dl (14.0-17.9); LYMPHOCYTES # (AUTO) 1.8 X10'3 (1.1-4.8); LYMPHOCYTES % (AUTO) 10.3 % (21-51); MEAN CORPUSCULAR HGB CONC 33.2 g/dL (33.0-36.5); MEAN CORPUSCULAR VOLUME 87.5 FL (78-98); MEAN PLATELET VOLUME 6.6 FL (7.4-10.4); MONOCYTES # (AUTO) 1.5 X10'3 (0-0.9); MONOCYTES % (AUTO) 8.6 % (2-12); NEUTROPHILS # (AUTO) 13.9 X10'3 (1.8-7.7); NEUTROPHILS % (AUTO) 78.9 % (42-75); PLATELET COUNT 428 X10'3 (140-440); RED BLOOD COUNT 3.06 X10'6 (4.70-6.10); RED CELL DISTRIBUTION WIDTH 15.3 % (11.5-14.5); WHITE BLOOD COUNT 17.6 X10'3 (4.5-11.0)
[2018-11-26 05:39] LABS: ALANINE AMINOTRANSFERASE 9 U/L (12-78); ALBUMIN 1.5 G/DL (3.4-5.0); ALBUMIN/GLOBULIN RATIO 0.4 (1.1-1.5); ALKALINE PHOSPHATASE 94 IU/L (20-180); ANION GAP 7 (8-16); ASPARTATE AMINO TRANSFERASE 15 U/L (10-37); BILIRUBIN,TOTAL 0.4 MG/DL (0.1-1.0); BLOOD UREA NITROGEN 2 MG/DL (7-18); CALCIUM 6.9 MG/DL (8.5-10.1); CHLORIDE 106 MMOL/L (99-107); CREATININE 0.66 MG/DL (0.60-1.10); GLUCOSE 64 MG/DL (70-104); MAGNESIUM 1.4 MG/DL (1.5-2.4); PHOSPHORUS 2.8 MG/DL (2.3-4.5); SODIUM 140 MMOL/L (135-145); TOTAL CARBON DIOXIDE 26.9 MMOL/L (24-32); TOTAL PROTEIN 4.9 G/DL (6.4-8.2); eGFR > 90 ML/MIN
--- NOTE | 2018-11-26 06:30 | NUR ---
Patient in room MAN 353. I have received report from TORIE Angeles and had the opportunity to ask questions and assume patient care.
[2018-11-26 06:43] LABS: POTASSIUM 2.7 MMOL/L (3.5-5.1)
[2018-11-26] MEDS: K and/or MAG REPLACEMENT MC SCH (07:04)
[2018-11-26] MEDS: ondansetron/PF 4mg/2ml inj IV PRN ×2 (07:37→16:22)
[2018-11-26] MEDS: potassium Cl 20 mEq SR tablet PO PRN ×3 (07:47→20:43)
[2018-11-26] MEDS: magnesium Cl slow-release 64mg tablet PO PRN ×2 (07:48→19:31)
[2018-11-26 08:00] VITALS: BP 103/61
[2018-11-26 09:47] LABS: PLATELET ESTIMATE NORMAL; TOTAL CELLS COUNTED 100; TOXIC GRANULATION 2+
[2018-11-26 10:08] LABS: C DIFF ANTIGEN NEGATIVE (NEGATIVE); C DIFF SPECIMEN=DIARRHEA? ACCEPTABLE; C DIFFICILE TOXINS A&B NEGATIVE (Neg)
[2018-11-26 11:00] VITALS: BP 106/67
[2018-11-26] MEDS: Potassium Cl inj 20 MEQ in normal saline 1000ml 990 ML IV SCH (14:35)
--- NOTE | 2018-11-26 14:45 | NUR ---
Call received from tele that pt was having a sinus arrhythmia with HR ranging 40's-60's. Dr. Ugarte made aware of heart rhythm and K 2.7 and Mag 1.4 this AM. Currently replacing K and Mag. ordered to change pts IVF from NS to NS w/20 mEq K.
--- NOTE | 2018-11-26 15:56 | NUR ---
Pts Potassium level 2.7 this AM. Pt requested to take PO Potassium vs. IV for replacement this AM. Started to administer 40 mEq PO x3. Total of 60 mEq given thus far and pt states he can't stomach any more potassium pills. Called and consulted Pharmacist about how much IV to administer since IVF now changed to NS w/20 K. Pharmacist recommended giving Potassium 10 mEQ IV x1 now then repeating K level within 2hrs.
--- NOTE | 2018-11-26 16:11 | NUR ---
Malnutrition consult: Pt documented with no decrease in muscle strength or edema. Pt previously on clear liquid diet has just been advanced to regular/lactose free with documented 0-25% not meeting nutrient needs. Per wt hx in EMR pt with -20# since June with documented wt of 126# 07/09/18, current documented wt 106# both weights obtained using standing scales. This is severe wt loss of 16% in five months. Pt meets criteria for malnutrition, MD notified. Pt admit with Crohn's exacerbation with colitis. Pt with multiple past visits and seen by RD for Crohn's nutrition therapy education. Pt seen at bedside again this visit provided with written and verbal Crohn's nutrition therapy education, high protein/high calorie education, recommendations for ONS following d/c with ONS coupons. Pt states he eats at least three meals a day following a bland diet at home reports he eats chicken, rice, and potatoes. Pt states he currently does not take any multivitamins or supplements and that he will be starting a new tx med called Stelara following d/c. Pt at high risk for nutrient deficiency given hx Crohn's and may benefit from MVM and low residue diet to ease symptoms, paged with these recommendations. Pt states he has Ensure at home of which he tries to drink 1-2 a day. Pt denied any food preferences or ONS at this time. RD contact information provided. Will continue to follow. Recommendations: 1) Diet change to low residue/lactose free 2) Encourage PO intake 3) MVM given high risk for nutrient deficiency 4) Wt per rx Addendum: 11/26/18 at [address] Amended: Links added.
[2018-11-26 18:00] VITALS: BP 105/61
--- NOTE | 2018-11-26 18:46 | NUR ---
Notified this afternoon of pt being in sinus arrhythmia. HR WNL. Other VS WNL. Abd pain managed with IV Dilaudid given x2 this shift. c/o nausea. Given Zofran before Dilaudid administration x2 with positive result. Decreased appetite this shift. encouraged pt to eat and drink. CDiff negative. Safety maintained ambulating independently. K 2.7 and Mag 1.4. Both replaced this shift. Plan for redraw @ 1930. Second dose of Mag due on NOC shift. Wrote nursing order per Dr. Trujillo to keep potassium at or around 4 and Mag between 2.0-2.5. IVF changed to NS w/20 mEq K. Plan to watch pt and monitor VS and labs and reassess him tomorrow AM for possible d/c home.
--- NOTE | 2018-11-26 18:55 | NUR ---
Problems reprioritized. Patient report given, questions answered & plan of care reviewed with TORIE Son.
--- NOTE | 2018-11-26 18:56 | NUR ---
Patient in room MAN 353. I have received report from TORIE Monroy and had the opportunity to ask questions and assume patient care.
[2018-11-26 20:12] LABS: ALBUMIN 1.5 G/DL (3.4-5.0); ANION GAP 10 (8-16); BLOOD UREA NITROGEN 3 MG/DL (7-18); BUN/CREATININE RATIO 5.1 (5.4-32.0); CALCIUM 7.2 MG/DL (8.5-10.1); CHLORIDE 106 MMOL/L (99-107); CREATININE 0.59 MG/DL (0.60-1.10); GLUCOSE 65 MG/DL (70-104); SODIUM 140 MMOL/L (135-145); TOTAL CARBON DIOXIDE 24.1 MMOL/L (24-32); eGFR > 90 ML/MIN
[2018-11-26 20:27] LABS: POTASSIUM 2.9 MMOL/L (3.5-5.1)
[2018-11-27] VITALS: BP 104/64
[2018-11-27] MEDS: ondansetron/PF 4mg/2ml inj IV PRN ×2 (02:41→09:16)
[2018-11-27] MEDS: HYDROmorphone 1 mg/ml syringe IV PRN ×2 (02:41→08:44)
[2018-11-27] MEDS: potassium Cl 20 mEq SR tablet PO PRN ×2 (04:12→09:12)
--- NOTE | 2018-11-27 06:30 | NUR ---
Problems reprioritized. Patient report given, questions answered & plan of care reviewed with TORIE Carrillo.
--- NOTE | 2018-11-27 06:32 | NUR ---
Patient in room MAN 353. I have received report from TORIE Son and had the opportunity to ask questions and assume patient care.
[2018-11-27] MEDS: Potassium Cl inj 20 MEQ in normal saline 1000ml 990 ML IV SCH (06:34)
[2018-11-27 08:00] VITALS: BP 101/59
[2018-11-27] MEDS: K and/or MAG REPLACEMENT MC SCH (08:00)
[2018-11-27] MEDS ORDERED: multivitamin oral liquid (Certavite) 5ml cup PO SCH (08:00)
[2018-11-27 08:17] LABS: BASOPHILS % (AUTO) 0.4 % (0-1); EOSINOPHILS # (AUTO) 0.3 X10'3 (0-0.9); EOSINOPHILS % (AUTO) 2.7 % (0-6); HEMOGLOBIN 9.1 g/dl (14.0-17.9); LYMPHOCYTES # (AUTO) 1.5 X10'3 (1.1-4.8); LYMPHOCYTES % (AUTO) 12.1 % (21-51); MEAN CORPUSCULAR HEMOGLOBIN 28.8 PG (27.0-31.0); MEAN CORPUSCULAR HGB CONC 32.6 g/dL (33.0-36.5); MEAN CORPUSCULAR VOLUME 88.3 FL (78-98); MEAN PLATELET VOLUME 6.3 FL (7.4-10.4); MONOCYTES # (AUTO) 1.1 X10'3 (0-0.9); MONOCYTES % (AUTO) 8.9 % (2-12); NEUTROPHILS # (AUTO) 9.3 X10'3 (1.8-7.7); NEUTROPHILS % (AUTO) 75.9 % (42-75); PLATELET COUNT 445 X10'3 (140-440); RED BLOOD COUNT 3.18 X10'6 (4.70-6.10); RED CELL DISTRIBUTION WIDTH 14.9 % (11.5-14.5); WHITE BLOOD COUNT 12.2 X10'3 (4.5-11.0)
[2018-11-27 08:30] LABS: ALANINE AMINOTRANSFERASE 9 U/L (12-78); ALBUMIN 1.5 G/DL (3.4-5.0); ALBUMIN/GLOBULIN RATIO 0.4 (1.1-1.5); ALKALINE PHOSPHATASE 90 IU/L (20-180); ANION GAP 6 (8-16); ASPARTATE AMINO TRANSFERASE 15 U/L (10-37); BILIRUBIN,TOTAL 0.4 MG/DL (0.1-1.0); BLOOD UREA NITROGEN 1 MG/DL (7-18); CALCIUM 7.7 MG/DL (8.5-10.1); CHLORIDE 108 MMOL/L (99-107); GLUCOSE 65 MG/DL (70-104); MAGNESIUM 1.7 MG/DL (1.5-2.4); PHOSPHORUS 2.9 MG/DL (2.3-4.5); POTASSIUM 3.2 MMOL/L (3.5-5.1); SODIUM 140 MMOL/L (135-145); TOTAL CARBON DIOXIDE 25.7 MMOL/L (24-32); TOTAL PROTEIN 4.9 G/DL (6.4-8.2)
[2018-11-27 08:41] LABS: BUN/CREATININE RATIO 1.6 (5.4-32.0); CREATININE 0.63 MG/DL (0.60-1.10); eGFR > 90 ML/MIN
[2018-11-27 12:00] VITALS: BP 101/61
--- NOTE | 2018-11-27 12:23 | NUR ---
Per Dr. Trujillo, further potassium replacement not needed at the hospital, will educate patient on importance of purchasing over the counter potassium and encourage oral intake and what times to do so today.
== END 2018-11-27 14:16 | disposition home or self-care (01) | DRG 245 ==
LOC: ER 11:28 → SUR 3N 18:49 → CMPBEDREQ 11-26 01:50
PROVIDERS: ADMIT Family Medicine; ATTEND Family Medicine
DX: K50.10 Crohn's disease of large intestine without complications (principal); E43 Unspecified severe protein-calorie malnutrition; D64.9 Anemia, unspecified; E73.9 Lactose intolerance, unspecified; I10 Essential (primary) hypertension; E86.0 Dehydration; E87.6 Hypokalemia; E83.42 Hypomagnesemia; B95.62 Methicillin resistant Staphylococcus aureus infection as the cause of diseases classified elsewhere; K52.9 Noninfective gastroenteritis and colitis, unspecified; Z86.19 Personal history of other infectious and parasitic diseases; Z68.54 Body mass index [BMI] pediatric, 95th percentile for age to less than 120% of the 95th percentile for age
CPT/HCPCS: 36415; 74177; 80048; 80053; 81001; 83605; 83735; 84100; 84145; 84443; 85025; 87040; 87081; 87088; 87324; 87449; 96365; 96366; 96375; 99285; G0378; J1170; J1200; J2060; J2270; J2405; J2543; J2765; J3480; J3490; J7030; Q9967

== ENCOUNTER 2018-12-19 18:21 | Emergency (ER) | payer MEDICAID ==
[~2018-12-19] VITALS: Ht 167.6 cm; Wt 65.0 kg
[2018-12-19 18:21] VITALS: BP 135/85
[~2018-12-19 18:21] MED LIST changes: +NO HOME MEDS; -PRED10TA23 PO
[2018-12-19] MEDS ORDERED: ketorolac trometh. 30mg/ml inj. IM ONE (18:30)
[2018-12-19] MEDS ORDERED: morphine 4 MG/ML inj SYRINge IM ONE ×2 (18:30→19:20)
[2018-12-19] MEDS ORDERED: ondansetron 4mg rapidly disintigrating tab PO ONE (18:40)
[2018-12-19 18:51] LABS: HEMOGLOBIN 8.8 g/dl (14.0-17.9); MEAN PLATELET VOLUME 6.7 FL (7.4-10.4)
[2018-12-19 18:53] LABS: BASOPHILS # (AUTO) 0.1 X10'3 (0-0.2); BASOPHILS % (AUTO) 0.5 % (0-1); EOSINOPHILS # (AUTO) 0.5 X10'3 (0-0.9); EOSINOPHILS % (AUTO) 3.6 % (0-6); HEMATOCRIT 26.2 % (42.0-52.0); LYMPHOCYTES # (AUTO) 1.5 X10'3 (1.1-4.8); LYMPHOCYTES % (AUTO) 10.6 % (21-51); MEAN CORPUSCULAR HEMOGLOBIN 29.9 PG (27.0-31.0); MEAN CORPUSCULAR HGB CONC 33.6 g/dL (33.0-36.5); MEAN CORPUSCULAR VOLUME 89.1 FL (78-98); MONOCYTES # (AUTO) 1.2 X10'3 (0-0.9); MONOCYTES % (AUTO) 8.8 % (2-12); NEUTROPHILS # (AUTO) 10.9 X10'3 (1.8-7.7); NEUTROPHILS % (AUTO) 76.5 % (42-75); PLATELET COUNT 432 X10'3 (140-440); RED BLOOD COUNT 2.94 X10'6 (4.70-6.10); RED CELL DISTRIBUTION WIDTH 16.4 % (11.5-14.5); WHITE BLOOD COUNT 14.2 X10'3 (4.5-11.0)
[2018-12-19 19:08] LABS: ALANINE AMINOTRANSFERASE 15 U/L (12-78); ALBUMIN 2.2 G/DL (3.4-5.0); ALBUMIN/GLOBULIN RATIO 0.6 (1.1-1.5); ALKALINE PHOSPHATASE 68 IU/L (46-116); ANION GAP 6 (8-16); ASPARTATE AMINO TRANSFERASE 15 U/L (10-37); BILIRUBIN,TOTAL 0.2 MG/DL (0.1-1.0); BLOOD UREA NITROGEN 8 MG/DL (7-18); BUN/CREATININE RATIO 11.8 (5.4-32.0); CALCIUM 7.9 MG/DL (8.5-10.1); CHLORIDE 111 MMOL/L (99-107); CREATININE 0.68 MG/DL (0.60-1.10); GLUCOSE 100 MG/DL (70-104); LIPASE 241 U/L (73-393); SODIUM 145 MMOL/L (135-145); TOTAL PROTEIN 6.2 G/DL (6.4-8.2); eGFR > 90 ML/MIN
[2018-12-19] MEDS ORDERED: POTASSIUM BICARB 20meq eff tab 20 MEQ TABLET.EFF PO ONE (19:15)
== END 2018-12-19 19:41 | disposition home or self-care (01) ==
LOC: ER 18:21
DX: K50.90 Crohn's disease, unspecified, without complications (principal); D72.829 Elevated white blood cell count, unspecified; I10 Essential (primary) hypertension
CPT/HCPCS: 36415; 80053; 83690; 85025; 96372; 99283; J1885; J2270; J2405

== ENCOUNTER 2019-01-16 19:18 | Emergency (ER) | payer MEDICAID ==
[~2019-01-16] VITALS: Ht 165.1 cm; Wt 56.4 kg
[2019-01-16 19:50] LABS: BASOPHILS # (AUTO) 0.1 X10'3 (0-0.2); BASOPHILS % (AUTO) 0.6 % (0-1); EOSINOPHILS # (AUTO) 0.5 X10'3 (0-0.9); EOSINOPHILS % (AUTO) 3.5 % (0-6); HEMATOCRIT 29.6 % (42.0-52.0); HEMOGLOBIN 9.6 g/dl (14.0-17.9); LYMPHOCYTES # (AUTO) 1.4 X10'3 (1.1-4.8); LYMPHOCYTES % (AUTO) 10.5 % (21-51); MEAN CORPUSCULAR HEMOGLOBIN 28.5 PG (27.0-31.0); MEAN CORPUSCULAR HGB CONC 32.4 g/dL (33.0-36.5); MEAN PLATELET VOLUME 6.8 FL (7.4-10.4); MONOCYTES # (AUTO) 1.3 X10'3 (0-0.9); MONOCYTES % (AUTO) 9.8 % (2-12); NEUTROPHILS # (AUTO) 9.9 X10'3 (1.8-7.7); NEUTROPHILS % (AUTO) 75.6 % (42-75); PLATELET COUNT 427 X10'3 (140-440); RED BLOOD COUNT 3.36 X10'6 (4.70-6.10); RED CELL DISTRIBUTION WIDTH 15.4 % (11.5-14.5); WHITE BLOOD COUNT 13.1 X10'3 (4.5-11.0)
[2019-01-16 19:59] LABS: ALANINE AMINOTRANSFERASE 17 U/L (12-78); ALBUMIN 2.7 G/DL (3.4-5.0); ALBUMIN/GLOBULIN RATIO 0.7 (1.1-1.5); ALKALINE PHOSPHATASE 63 IU/L (46-116); ANION GAP 5 (8-16); ASPARTATE AMINO TRANSFERASE 18 U/L (10-37); BILIRUBIN,TOTAL 0.3 MG/DL (0.1-1.0); BLOOD UREA NITROGEN 8 MG/DL (7-18); BUN/CREATININE RATIO 10.4 (5.4-32.0); CALCIUM 8.4 MG/DL (8.5-10.1); CHLORIDE 107 MMOL/L (99-107); CREATININE 0.77 MG/DL (0.60-1.10); GLUCOSE 73 MG/DL (70-104); POTASSIUM 3.2 MMOL/L (3.5-5.1); SODIUM 143 MMOL/L (135-145); TOTAL CARBON DIOXIDE 30.6 MMOL/L (24-32); TOTAL PROTEIN 6.7 G/DL (6.4-8.2); eGFR > 90 ML/MIN
[2019-01-16 20:00] LABS: CLARITY,URINE SLIGHTLY CLOUDY (Clear); COLOR,URINE YELLOW (Yellow); GLUCOSE, URINE NEGATIVE (Neg); KETONES,URINE NEGATIVE (Neg); LEUKOCYTE ESTERASE ,URINE NEGATIVE (Neg); NITRITES, URINE NEGATIVE (Neg); OCCULT BLOOD,URINE LARGE (Neg); PROTEIN,URINE 30 mg/dl (Neg); UROBILINOGEN,URINE 0.2 E.U/dL (0.2-1.0)
[2019-01-16 20:01] LABS: UA COLLECTION TYPE URINAL
[2019-01-16 20:41] LABS: MUCUS STRANDS MANY /LPF (Neg); RBC,URINE 50-100 /HPF (0-2); SQUAMOUS EPITHELIAL CELL,UR FEW /LPF (FEW); WBC,URINE 0-4 /HPF (0-4)
[2019-01-16 20:42] LABS: BACTERIA,URINE NONE SEEN /HPF (Neg); FINE GRANULAR CAST 0-3 /LPF (NEGATIVE)
[2019-01-16] MEDS ORDERED: normal saline 1000ML IV soln IVB ONE (21:00)
[2019-01-16] MEDS ORDERED: morphine 4 MG/ML inj SYRINge IV ONE (21:00)
[2019-01-16] MEDS ORDERED: ondansetron/PF 4mg/2ml inj IV ONE (21:00)
[2019-01-16] MEDS ORDERED: iohexol 300mg/ml 100ml inj. ONE (21:02)
[2019-01-16] MEDS ORDERED: methylPREDNISolone sod succ 125mg/2ml vial IV ONE (22:05)
[2019-01-16] MEDS ORDERED: MERC50TA16 PO (22:28)
--- NOTE | 2019-01-16 22:28 | NUR ---
Patient and mother declined ordered Solu-Medrol at this time, stated MD needs to contact PAUL Thrasher prior to administration. Mother also reported patient takes 2 home meds, does not know dosage of 1st, and does not know name of 2nd, will check and get back to us.
--- NOTE | 2019-01-16 22:45 | NUR ---
Addendum: 01/16/19 at [address] Warren notified patient and mother declined Solu-Medrol until they speak to him, and that they said he will need to talk to doctor at [facility] prior to accepting medication, stated he will not be able to talk to patient's doctor at [facility] and to not give ordered Solu-Medrol.
--- NOTE | 2019-01-16 23:25 | NUR ---
Dr. Warren notified patient/mother willing to take Solu-Medrol now, stated to continue to withhold as [facility] doctor should be consulted first as there is higher risk of infection when taking Stellara.
[2019-01-16] MEDS ORDERED: USTE45DI (23:34)
[2019-01-17] MEDS ORDERED: piperacillin/tazo 3.375gm/50ml 50 ML IV SCH
[2019-01-17] MEDS ORDERED: CIPR-259 PO (00:21)
[2019-01-17] MEDS ORDERED: HYDR-4353 PO (00:21)
[2019-01-17] MEDS ORDERED: METR500T PO (00:21)
[2019-01-17 02:49] VITALS: BP 104/69
== END 2019-01-17 02:15 | disposition home or self-care (01) ==
LOC: ER 19:19
DX: K50.90 Crohn's disease, unspecified, without complications (principal); R10.33 Periumbilical pain; I10 Essential (primary) hypertension; Z91.011 Allergy to milk products; Z79.899 Other long term (current) drug therapy
CPT/HCPCS: 36415; 74177; 80053; 81001; 85025; 85610; 96365; 96366; 96375; 99284; J2270; J2405; J2543; J2930; J7030; Q9967

== ENCOUNTER 2019-01-23 21:03 | Emergency (ER) | payer MEDICAID ==
[~2019-01-23] VITALS: Ht 165.1 cm; Wt 60.9 kg
[~2019-01-23 21:03] MED LIST changes: +CIPR-259 PO; +HYDR-4353 PO; +MERC50TA16 PO; +METR500T PO; -NO HOME MEDS; +USTE45DI
[2019-01-23 21:45] LABS: BASOPHILS # (AUTO) 0.1 X10'3 (0-0.2); BASOPHILS % (AUTO) 0.6 % (0-1); EOSINOPHILS # (AUTO) 0.5 X10'3 (0-0.9); EOSINOPHILS % (AUTO) 4.2 % (0-6); HEMATOCRIT 28.3 % (42.0-52.0); HEMOGLOBIN 9.6 g/dl (14.0-17.9); LYMPHOCYTES # (AUTO) 1.6 X10'3 (1.1-4.8); LYMPHOCYTES % (AUTO) 14.9 % (21-51); MEAN CORPUSCULAR HEMOGLOBIN 29.8 PG (27.0-31.0); MEAN CORPUSCULAR HGB CONC 34.1 g/dL (33.0-36.5); MEAN CORPUSCULAR VOLUME 87.4 FL (78-98); MEAN PLATELET VOLUME 6.6 FL (7.4-10.4); MONOCYTES # (AUTO) 1.7 X10'3 (0-0.9); MONOCYTES % (AUTO) 15.3 % (2-12); NEUTROPHILS # (AUTO) 7.1 X10'3 (1.8-7.7); PLATELET COUNT 431 X10'3 (140-440); RED BLOOD COUNT 3.23 X10'6 (4.70-6.10); RED CELL DISTRIBUTION WIDTH 15.5 % (11.5-14.5); WHITE BLOOD COUNT 10.9 X10'3 (4.5-11.0)
[2019-01-23 21:51] LABS: ALANINE AMINOTRANSFERASE 20 U/L (12-78); ALBUMIN 2.8 G/DL (3.4-5.0); ALBUMIN/GLOBULIN RATIO 0.7 (1.1-1.5); ALKALINE PHOSPHATASE 56 IU/L (46-116); ANION GAP 6 (8-16); ASPARTATE AMINO TRANSFERASE 19 U/L (10-37); BILIRUBIN,TOTAL 0.3 MG/DL (0.1-1.0); BLOOD UREA NITROGEN 7 MG/DL (7-18); BUN/CREATININE RATIO 8.6 (5.4-32.0); CALCIUM 8.4 MG/DL (8.5-10.1); CHLORIDE 106 MMOL/L (99-107); CREATININE 0.81 MG/DL (0.60-1.10); GLUCOSE 78 MG/DL (70-104); LIPASE 129 U/L (73-393); POTASSIUM 3.1 MMOL/L (3.5-5.1); SODIUM 142 MMOL/L (135-145); TOTAL CARBON DIOXIDE 29.8 MMOL/L (24-32); TOTAL PROTEIN 6.7 G/DL (6.4-8.2); eGFR > 90 ML/MIN
[2019-01-23] MEDS ORDERED: dexamethasone 4mg tablet PO ONE (22:15)
[2019-01-23 22:25] VITALS: BP 115/65
[2019-01-23] MEDS ORDERED: HYDROcodone/acetaminophen 10/325mg tab PO ONE (23:20)
[2019-01-23] MEDS ORDERED: ondansetron 4mg rapidly disintigrating tab PO ONE (23:20)
[2019-01-23] MEDS ORDERED: potassium Cl 20 mEq SR tablet PO STA (23:21)
[2019-01-23] MEDS ORDERED: PRED20TA PO (23:25)
== END 2019-01-23 23:33 | disposition home or self-care (01) ==
LOC: ER 21:04
DX: R10.84 Generalized abdominal pain (principal); K50.90 Crohn's disease, unspecified, without complications; D64.9 Anemia, unspecified; E87.6 Hypokalemia; I10 Essential (primary) hypertension; Z79.2 Long term (current) use of antibiotics; Z79.899 Other long term (current) drug therapy
CPT/HCPCS: 36415; 80053; 83690; 85025; 99284; J8540

== ENCOUNTER 2019-03-08 20:25 | Emergency (ER) | payer MEDICAID ==
[~2019-03-08] VITALS: Ht 165.1 cm; Wt 61.8 kg
[~2019-03-08 20:25] MED LIST changes: -CIPR-259 PO; -HYDR-4353 PO; -METR500T PO
--- NOTE | 2019-03-08 20:35 | NUR ---
Patient's last Stellara injection was mid-septemeber, next due mar 30 and just finished his last course of prednisone aprox 2 wks ago
[2019-03-08 20:53] LABS: BASOPHILS # (AUTO) 0.1 X10'3 (0-0.2); BASOPHILS % (AUTO) 0.5 % (0-1); EOSINOPHILS # (AUTO) 0.5 X10'3 (0-0.9); EOSINOPHILS % (AUTO) 4.4 % (0-6); HEMATOCRIT 28.8 % (42.0-52.0); HEMOGLOBIN 9.6 g/dl (14.0-17.9); LYMPHOCYTES # (AUTO) 1.6 X10'3 (1.1-4.8); LYMPHOCYTES % (AUTO) 12.7 % (21-51); MEAN CORPUSCULAR HEMOGLOBIN 27.8 PG (27.0-31.0); MEAN CORPUSCULAR HGB CONC 33.5 g/dL (33.0-36.5); MEAN CORPUSCULAR VOLUME 83.1 FL (78-98); MEAN PLATELET VOLUME 7.5 FL (7.4-10.4); MONOCYTES # (AUTO) 1.1 X10'3 (0-0.9); MONOCYTES % (AUTO) 9.1 % (2-12); NEUTROPHILS # (AUTO) 9.1 X10'3 (1.8-7.7); NEUTROPHILS % (AUTO) 73.3 % (42-75); PLATELET COUNT 398 X10'3 (140-440); RED BLOOD COUNT 3.46 X10'6 (4.70-6.10); RED CELL DISTRIBUTION WIDTH 15.1 % (11.5-14.5); WHITE BLOOD COUNT 12.3 X10'3 (4.5-11.0)
[2019-03-08] MEDS ORDERED: ondansetron 4mg rapidly disintigrating tab PO ONE (20:55)
[2019-03-08] MEDS ORDERED: HYDROcodone/acetaminophen 5mg/325mg tablet PO ONE (20:55)
[2019-03-08] MEDS ORDERED: morphine 4 MG/ML inj SYRINge IM ONE (20:55)
[2019-03-08 21:01] LABS: ALANINE AMINOTRANSFERASE 21 U/L (12-78); ALBUMIN 3.2 G/DL (3.4-5.0); ALBUMIN/GLOBULIN RATIO 0.8 (1.1-1.5); ALKALINE PHOSPHATASE 75 IU/L (46-116); ANION GAP 8 (8-16); ASPARTATE AMINO TRANSFERASE 22 U/L (10-37); BILIRUBIN,TOTAL 0.3 MG/DL (0.1-1.0); BLOOD UREA NITROGEN 8 MG/DL (7-18); CALCIUM 8.7 MG/DL (8.5-10.1); CHLORIDE 106 MMOL/L (99-107); GLUCOSE 91 MG/DL (70-104); POTASSIUM 3.2 MMOL/L (3.5-5.1); SODIUM 143 MMOL/L (135-145); TOTAL CARBON DIOXIDE 29.1 MMOL/L (24-32); TOTAL PROTEIN 7.4 G/DL (6.4-8.2); eGFR > 90 ML/MIN
[2019-03-08] MEDS ORDERED: HYDR-3965 PO (21:06)
[2019-03-08] MEDS ORDERED: ONDA8TAB6 PO (21:06)
[2019-03-08] MEDS ORDERED: POTA20TA19 PO (21:06)
[2019-03-08 21:26] VITALS: BP 118/70
== END 2019-03-08 21:30 | disposition home or self-care (01) ==
LOC: ER 20:26
DX: K50.90 Crohn's disease, unspecified, without complications (principal); R10.84 Generalized abdominal pain; I10 Essential (primary) hypertension; Z91.011 Allergy to milk products; Z79.899 Other long term (current) drug therapy
CPT/HCPCS: 36415; 80053; 85025; 96372; 99283; J2270

== ENCOUNTER 2019-03-27 17:49 | Emergency (ER) | payer MEDICAID, OTHER ==
[~2019-03-27] VITALS: Ht 165.1 cm; Wt 63.0 kg
[~2019-03-27 17:49] MED LIST changes: +HYDR-3965 PO; +ONDA8TAB6 PO; +POTA20TA19 PO
[2019-03-27 17:52] VITALS: BP 123/86
[2019-03-27] MEDS ORDERED: ondansetron 4mg rapidly disintigrating tab PO ONE (19:20)
[2019-03-27] MEDS ORDERED: HYDROcodone/acetaminophen 10/325mg tab PO ONE (19:20)
[2019-03-27] MEDS ORDERED: ONDA4TAB6 PO (19:52)
[2019-03-27] MEDS ORDERED: HYDR-4383 PO (19:52)
== END 2019-03-27 20:16 | disposition home or self-care (01) ==
LOC: ER 17:50
DX: K50.90 Crohn's disease, unspecified, without complications (principal); I10 Essential (primary) hypertension; Z91.011 Allergy to milk products
CPT/HCPCS: 99283

== ENCOUNTER 2019-04-21 19:12 | Emergency (ER) | payer MEDICAID ==
[~2019-04-21] VITALS: Ht 165.1 cm; Wt 61.2 kg
[~2019-04-21 19:12] MED LIST changes: -HYDR-3965 PO; +HYDR-4383 PO; +ONDA4TAB6 PO; -POTA20TA19 PO
[2019-04-21 19:27] VITALS: BP 105/67
[2019-04-21] MEDS ORDERED: ondansetron 4mg rapidly disintigrating tab PO ONE (20:30)
[2019-04-21] MEDS ORDERED: HYDROcodone/acetaminophen 5mg/325mg tablet PO ONE (20:30)
[2019-04-21 20:56] LABS: BASOPHILS # (AUTO) 0.1 X10'3 (0-0.2); BASOPHILS % (AUTO) 0.6 % (0-1); EOSINOPHILS # (AUTO) 0.6 X10'3 (0-0.9); EOSINOPHILS % (AUTO) 5.4 % (0-6); HEMATOCRIT 32.7 % (42.0-52.0); LYMPHOCYTES # (AUTO) 1.2 X10'3 (1.1-4.8); MEAN CORPUSCULAR HEMOGLOBIN 25.9 PG (27.0-31.0); MEAN CORPUSCULAR HGB CONC 33.5 g/dL (33.0-36.5); MEAN CORPUSCULAR VOLUME 77.3 FL (78-98); MEAN PLATELET VOLUME 7.4 FL (7.4-10.4); MONOCYTES # (AUTO) 1.2 X10'3 (0-0.9); NEUTROPHILS # (AUTO) 7.5 X10'3 (1.8-7.7); PLATELET COUNT 450 X10'3 (140-440); RED BLOOD COUNT 4.22 X10'6 (4.70-6.10); RED CELL DISTRIBUTION WIDTH 15.6 % (11.5-14.5); WHITE BLOOD COUNT 10.5 X10'3 (4.5-11.0)
[2019-04-21 21:10] LABS: ALANINE AMINOTRANSFERASE 15 U/L (12-78); ALBUMIN 3.5 G/DL (3.4-5.0); ALBUMIN/GLOBULIN RATIO 0.8 (1.1-1.5); ALKALINE PHOSPHATASE 90 IU/L (46-116); ANION GAP 9 (8-16); ASPARTATE AMINO TRANSFERASE 20 U/L (10-37); BILIRUBIN,TOTAL 0.5 MG/DL (0.1-1.0); BLOOD UREA NITROGEN 8 MG/DL (7-18); BUN/CREATININE RATIO 8.2 (5.4-32.0); CALCIUM 8.9 MG/DL (8.5-10.1); CHLORIDE 101 MMOL/L (99-107); CREATININE 0.97 MG/DL (0.60-1.10); GLUCOSE 84 MG/DL (70-104); POTASSIUM 3.7 MMOL/L (3.5-5.1); SODIUM 138 MMOL/L (135-145); TOTAL CARBON DIOXIDE 27.8 MMOL/L (24-32); TOTAL PROTEIN 8.1 G/DL (6.4-8.2); eGFR > 90 ML/MIN
[2019-04-21] MEDS ORDERED: HYDR-3965 PO (21:16)
== END 2019-04-21 21:28 | disposition home or self-care (01) ==
LOC: ER 19:12
DX: R10.84 Generalized abdominal pain (principal); I10 Essential (primary) hypertension; Z79.899 Other long term (current) drug therapy
CPT/HCPCS: 36415; 80053; 85025; 99283

== ENCOUNTER 2019-05-19 20:04 | Emergency (ER) | payer MEDICAID ==
[~2019-05-19] VITALS: Ht 165.1 cm; Wt 55.8 kg
[2019-05-19] MEDS ORDERED: ondansetron/PF 4mg/2ml inj IV ONE (20:30)
[2019-05-19] MEDS ORDERED: morphine 4 MG/ML inj SYRINge IV PRN (20:30)
[2019-05-19] MEDS ORDERED: normal saline 1000ML IV soln IVB ONE (20:30)
[2019-05-19] MEDS ORDERED: methylPREDNISolone sod succ 125mg/2ml vial IV ONE (20:30)
[2019-05-19 21:00] LABS: BASOPHILS % (AUTO) 0.3 % (0-1); EOSINOPHILS # (AUTO) 0.1 X10'3 (0-0.9); EOSINOPHILS % (AUTO) 1.9 % (0-6); HEMATOCRIT 37.8 % (42.0-52.0); HEMOGLOBIN 12.5 g/dl (14.0-17.9); LYMPHOCYTES # (AUTO) 0.9 X10'3 (1.1-4.8); LYMPHOCYTES % (AUTO) 11.9 % (21-51); MEAN CORPUSCULAR HEMOGLOBIN 24.9 PG (27.0-31.0); MEAN CORPUSCULAR HGB CONC 33.2 g/dL (33.0-36.5); MEAN PLATELET VOLUME 8.4 FL (7.4-10.4); MONOCYTES # (AUTO) 0.5 X10'3 (0-0.9); MONOCYTES % (AUTO) 6.3 % (2-12); NEUTROPHILS # (AUTO) 5.8 X10'3 (1.8-7.7); NEUTROPHILS % (AUTO) 79.6 % (42-75); PLATELET COUNT 297 X10'3 (140-440); RED BLOOD COUNT 5.03 X10'6 (4.70-6.10); RED CELL DISTRIBUTION WIDTH 16.3 % (11.5-14.5); WHITE BLOOD COUNT 7.3 X10'3 (4.5-11.0)
[2019-05-19 21:16] LABS: ALANINE AMINOTRANSFERASE 18 U/L (12-78); ALBUMIN 3.3 G/DL (3.4-5.0); ALBUMIN/GLOBULIN RATIO 0.7 (1.1-1.5); ALKALINE PHOSPHATASE 77 IU/L (46-116); ANION GAP 11 (8-16); ASPARTATE AMINO TRANSFERASE 24 U/L (10-37); BILIRUBIN,TOTAL 0.6 MG/DL (0.1-1.0); BLOOD UREA NITROGEN 17 MG/DL (7-18); BUN/CREATININE RATIO 14.5 (5.4-32.0); CALCIUM 8.4 MG/DL (8.5-10.1); CHLORIDE 101 MMOL/L (99-107); CREATININE 1.17 MG/DL (0.60-1.10); GLUCOSE 91 MG/DL (70-104); LIPASE 106 U/L (73-393); POTASSIUM 3.9 MMOL/L (3.5-5.1); SODIUM 139 MMOL/L (135-145); TOTAL CARBON DIOXIDE 27.3 MMOL/L (24-32); TOTAL PROTEIN 8.1 G/DL (6.4-8.2); eGFR 79 ML/MIN
[2019-05-19] MEDS ORDERED: proCHLORperazine 10 MG/2 ml inj IV ONE (21:30)
[2019-05-19] MEDS ORDERED: PRED20TA PO (22:19)
[2019-05-19 22:23] VITALS: BP 105/78
== END 2019-05-19 22:43 | disposition home or self-care (01) ==
LOC: ER 20:05
DX: K50.90 Crohn's disease, unspecified, without complications (principal); R19.7 Diarrhea, unspecified; R10.30 Lower abdominal pain, unspecified; I10 Essential (primary) hypertension; Z91.011 Allergy to milk products; Z79.899 Other long term (current) drug therapy
CPT/HCPCS: 36415; 80053; 83690; 85025; 96361; 96374; 96375; 99283; J0780; J2270; J2405; J2930; J7030

== ENCOUNTER 2019-05-29 21:30 | Emergency (ER) | payer MEDICAID ==
[~2019-05-29] VITALS: Ht 165.1 cm; Wt 56.8 kg
--- NOTE | 2019-05-29 21:58 | NUR ---
WARM PACKS MADE AND APPLIED TO HIS BELLY
[2019-05-29 22:08] LABS: BASOPHILS % (AUTO) 0.2 % (0-1); EOSINOPHILS # (AUTO) 0.4 X10'3 (0-0.9); EOSINOPHILS % (AUTO) 2.3 % (0-6); HEMATOCRIT 31.1 % (42.0-52.0); HEMOGLOBIN 10.3 g/dl (14.0-17.9); LYMPHOCYTES # (AUTO) 1.6 X10'3 (1.1-4.8); LYMPHOCYTES % (AUTO) 8.4 % (21-51); MEAN CORPUSCULAR HEMOGLOBIN 24.9 PG (27.0-31.0); MEAN CORPUSCULAR VOLUME 75.5 FL (78-98); MEAN PLATELET VOLUME 6.9 FL (7.4-10.4); MONOCYTES # (AUTO) 1.7 X10'3 (0-0.9); NEUTROPHILS # (AUTO) 14.8 X10'3 (1.8-7.7); NEUTROPHILS % (AUTO) 80.1 % (42-75); PLATELET COUNT 590 X10'3 (140-440); RED BLOOD COUNT 4.12 X10'6 (4.70-6.10); RED CELL DISTRIBUTION WIDTH 16.7 % (11.5-14.5); WHITE BLOOD COUNT 18.5 X10'3 (4.5-11.0)
[2019-05-29 22:18] LABS: ALANINE AMINOTRANSFERASE 14 U/L (12-78); ALBUMIN 3.1 G/DL (3.4-5.0); ALBUMIN/GLOBULIN RATIO 0.7 (1.1-1.5); ALKALINE PHOSPHATASE 98 IU/L (46-116); AMYLASE 75 U/L (25-115); ANION GAP 8 (8-16); ASPARTATE AMINO TRANSFERASE 12 U/L (10-37); BILIRUBIN,TOTAL 0.5 MG/DL (0.1-1.0); BLOOD UREA NITROGEN 9 MG/DL (7-18); BUN/CREATININE RATIO 8.7 (5.4-32.0); CALCIUM 8.4 MG/DL (8.5-10.1); CHLORIDE 102 MMOL/L (99-107); CREATININE 1.04 MG/DL (0.60-1.10); GLUCOSE 85 MG/DL (70-104); LIPASE 97 U/L (73-393); POTASSIUM 3.7 MMOL/L (3.5-5.1); SODIUM 138 MMOL/L (135-145); TOTAL CARBON DIOXIDE 28.3 MMOL/L (24-32); TOTAL PROTEIN 7.6 G/DL (6.4-8.2); eGFR 90 ML/MIN
[2019-05-29] MEDS ORDERED: normal saline 1000ML IV soln IV ONE (22:40)
[2019-05-29] MEDS ORDERED: ondansetron 4mg rapidly disintigrating tab PO ONE (22:50)
[2019-05-29] MEDS ORDERED: morphine 4 MG/ML inj SYRINge IV ONE (22:50)
[2019-05-29 23:36] LABS: PARTIAL THROMBOPLASTIN TIME 30 SECONDS (22-32)
[2019-05-29 23:54] LABS: CLARITY,URINE CLOUDY (Clear); COLOR,URINE YELLOW (Yellow); GLUCOSE, URINE NEGATIVE (Neg); KETONES,URINE 15 mg/dl (Neg); LEUKOCYTE ESTERASE ,URINE NEGATIVE (Neg); NITRITES, URINE NEGATIVE (Neg); OCCULT BLOOD,URINE LARGE (Neg); PH,URINE 6.5 (4.8-8.0); PROTEIN,URINE 30 mg/dl (Neg); UROBILINOGEN,URINE 0.2 E.U/dL (0.2-1.0)
[2019-05-29 23:59] LABS: RBC,URINE 50-100 /HPF (0-2); UA COLLECTION TYPE URINAL; WBC,URINE 0-4 /HPF (0-4)
[2019-05-29] MEDS ORDERED: FERR325T28 PO (23:59)
[2019-05-30] LABS: BACTERIA,URINE FEW /HPF (Neg); MUCUS STRANDS FEW /LPF (Neg); SQUAMOUS EPITHELIAL CELL,UR FEW /LPF (FEW)
[2019-05-30] MEDS ORDERED: HYDR-4383 PO (00:36)
[2019-05-30] MEDS ORDERED: ONDA4TAB6 PO (00:36)
[2019-05-30] MEDS ORDERED: AZIT-72 PO (00:36)
[2019-05-30 00:43] VITALS: BP 105/55
== END 2019-05-30 00:48 | disposition home or self-care (01) ==
LOC: ER 21:30
DX: K50.90 Crohn's disease, unspecified, without complications (principal); J18.9 Pneumonia, unspecified organism; R10.84 Generalized abdominal pain; I10 Essential (primary) hypertension; Z91.011 Allergy to milk products; Z79.899 Other long term (current) drug therapy
CPT/HCPCS: 36415; 74176; 80053; 81001; 82150; 83605; 83690; 84145; 85025; 85610; 85730; 87040; 96374; 99284; J2270; J7030

== ENCOUNTER 2019-08-24 19:09 | Emergency (ER) | payer MEDICAID ==
[~2019-08-24] VITALS: Ht 165.1 cm; Wt 60.0 kg
[~2019-08-24 19:09] MED LIST changes: +FERR325T28 PO
[2019-08-24] MEDS ORDERED: normal saline 1000ML IV soln IVB ONE (19:35)
[2019-08-24] MEDS ORDERED: ondansetron/PF 4mg/2ml inj IV ONE (19:35)
[2019-08-24] MEDS ORDERED: methylPREDNISolone sod succ 125mg/2ml vial IV ONE (19:35)
[2019-08-24] MEDS ORDERED: morphine 4 MG/ML inj SYRINge IV PRN (19:35)
[2019-08-24 19:37] LABS: CLARITY,URINE CLEAR (Clear); COLOR,URINE YELLOW (Yellow); GLUCOSE, URINE NEGATIVE (Neg); KETONES,URINE NEGATIVE (Neg); LEUKOCYTE ESTERASE ,URINE NEGATIVE (Neg); NITRITES, URINE NEGATIVE (Neg); OCCULT BLOOD,URINE MODERATE (Neg); PROTEIN,URINE NEGATIVE (Neg); UROBILINOGEN,URINE 0.2 E.U/dL (0.2-1.0)
[2019-08-24 19:42] LABS: UA COLLECTION TYPE CLN CATCH MIDSTREAM
[2019-08-24 19:45] LABS: BACTERIA,URINE NONE SEEN /HPF (Neg); MUCUS STRANDS MODERATE /LPF (Neg); RBC,URINE 20-50 /HPF (0-2); SQUAMOUS EPITHELIAL CELL,UR NONE SEEN /LPF (FEW); WBC,URINE 0-4 /HPF (0-4)
[2019-08-24 19:59] LABS: BASOPHILS # (AUTO) 0.1 X10'3 (0-0.2); BASOPHILS % (AUTO) 0.6 % (0-1); EOSINOPHILS # (AUTO) 0.4 X10'3 (0-0.9); EOSINOPHILS % (AUTO) 3.5 % (0-6); HEMATOCRIT 33.2 % (42.0-52.0); HEMOGLOBIN 10.5 g/dl (14.0-17.9); LYMPHOCYTES # (AUTO) 0.8 X10'3 (1.1-4.8); LYMPHOCYTES % (AUTO) 6.9 % (21-51); MEAN CORPUSCULAR HGB CONC 31.8 g/dL (33.0-36.5); MEAN CORPUSCULAR VOLUME 78.7 FL (78-98); MEAN PLATELET VOLUME 6.9 FL (7.4-10.4); MONOCYTES # (AUTO) 1.6 X10'3 (0-0.9); MONOCYTES % (AUTO) 13.3 % (2-12); NEUTROPHILS # (AUTO) 8.9 X10'3 (1.8-7.7); NEUTROPHILS % (AUTO) 75.7 % (42-75); PLATELET COUNT 484 X10'3 (140-440); RED BLOOD COUNT 4.22 X10'6 (4.70-6.10); RED CELL DISTRIBUTION WIDTH 17.4 % (11.5-14.5); WHITE BLOOD COUNT 11.7 X10'3 (4.5-11.0)
[2019-08-24 20:12] LABS: ALANINE AMINOTRANSFERASE 11 U/L (12-78); ALBUMIN 2.9 G/DL (3.4-5.0); ALBUMIN/GLOBULIN RATIO 0.7 (1.1-1.5); ALKALINE PHOSPHATASE 76 IU/L (46-116); ANION GAP 4 (8-16); ASPARTATE AMINO TRANSFERASE 9 U/L (10-37); BILIRUBIN,TOTAL 0.2 MG/DL (0.1-1.0); BLOOD UREA NITROGEN 9 MG/DL (7-18); BUN/CREATININE RATIO 9.2 (5.4-32.0); CALCIUM 8.8 MG/DL (8.5-10.1); CHLORIDE 103 MMOL/L (99-107); CREATININE 0.98 MG/DL (0.60-1.10); GLUCOSE 80 MG/DL (70-104); LIPASE 136 U/L (73-393); POTASSIUM 3.9 MMOL/L (3.5-5.1); SODIUM 138 MMOL/L (135-145); TOTAL CARBON DIOXIDE 31.3 MMOL/L (24-32); TOTAL PROTEIN 7.3 G/DL (6.4-8.2); eGFR > 90 ML/MIN
[2019-08-24] MEDS ORDERED: HYDROcodone/acetaminophen 5mg/325mg tablet PO ONE (20:25)
[2019-08-24] MEDS ORDERED: ketorolac trometh. 30mg/ml inj. IV ONE (20:25)
[2019-08-24] MEDS ORDERED: HYDR-4383 PO (21:09)
[2019-08-24] MEDS ORDERED: PRED10TA PO (21:09)
[2019-08-24] MEDS ORDERED: ONDA4TAB6 PO (21:09)
[2019-08-24 21:32] VITALS: BP 107/47
== END 2019-08-24 21:33 | disposition home or self-care (01) ==
LOC: ER 19:09
DX: K50.90 Crohn's disease, unspecified, without complications (principal); R19.7 Diarrhea, unspecified; R10.30 Lower abdominal pain, unspecified; I10 Essential (primary) hypertension; Z79.899 Other long term (current) drug therapy; Z91.011 Allergy to milk products
CPT/HCPCS: 36415; 80053; 81001; 83690; 85025; 96361; 96374; 96375; 99284; J1885; J2270; J2405; J2930; J7030

== ENCOUNTER 2019-10-21 19:47 | Emergency (ER) | payer MEDICAID ==
[~2019-10-21] VITALS: Ht 165.1 cm; Wt 59.1 kg
[~2019-10-21 19:47] MED LIST changes: +PRED10TA PO
[2019-10-21] MEDS ORDERED: normal saline 1000ml 1,000 ML IV ONE (20:35)
[2019-10-21] MEDS ORDERED: morphine 4 MG/ML inj SYRINge IV ONE (20:35)
[2019-10-21] MEDS ORDERED: ondansetron/PF 4mg/2ml inj IV ONE (20:35)
[2019-10-21 20:36] LABS: BASOPHILS # (AUTO) 0.1 X10'3 (0-0.2); BASOPHILS % (AUTO) 0.6 % (0-1); EOSINOPHILS # (AUTO) 0.6 X10'3 (0-0.9); EOSINOPHILS % (AUTO) 4.7 % (0-6); HEMATOCRIT 32.4 % (42.0-52.0); HEMOGLOBIN 10.2 g/dl (14.0-17.9); LYMPHOCYTES # (AUTO) 1.3 X10'3 (1.1-4.8); LYMPHOCYTES % (AUTO) 9.8 % (21-51); MEAN CORPUSCULAR HEMOGLOBIN 23.2 PG (27.0-31.0); MEAN CORPUSCULAR HGB CONC 31.5 g/dL (33.0-36.5); MEAN CORPUSCULAR VOLUME 73.8 FL (78-98); MEAN PLATELET VOLUME 6.8 FL (7.4-10.4); MONOCYTES # (AUTO) 1.6 X10'3 (0-0.9); MONOCYTES % (AUTO) 12.2 % (2-12); NEUTROPHILS # (AUTO) 9.6 X10'3 (1.8-7.7); NEUTROPHILS % (AUTO) 72.7 % (42-75); PLATELET COUNT 547 X10'3 (140-440); RED BLOOD COUNT 4.39 X10'6 (4.70-6.10); RED CELL DISTRIBUTION WIDTH 17.1 % (11.5-14.5); WHITE BLOOD COUNT 13.2 X10'3 (4.5-11.0)
[2019-10-21 20:50] LABS: ALANINE AMINOTRANSFERASE 11 U/L (12-78); ALBUMIN 2.9 G/DL (3.4-5.0); ALBUMIN/GLOBULIN RATIO 0.7 (1.1-1.5); ALKALINE PHOSPHATASE 79 IU/L (46-116); ANION GAP 8 (8-16); ASPARTATE AMINO TRANSFERASE 13 U/L (10-37); BILIRUBIN,TOTAL 0.3 MG/DL (0.1-1.0); BLOOD UREA NITROGEN 5 MG/DL (7-18); BUN/CREATININE RATIO 5.2 (5.4-32.0); CALCIUM 8.6 MG/DL (8.5-10.1); CHLORIDE 104 MMOL/L (99-107); CREATININE 0.96 MG/DL (0.60-1.10); GLUCOSE 83 MG/DL (70-104); LIPASE 144 U/L (73-393); POTASSIUM 3.9 MMOL/L (3.5-5.1); SODIUM 139 MMOL/L (135-145); TOTAL CARBON DIOXIDE 27.4 MMOL/L (24-32); eGFR > 90 ML/MIN
[2019-10-21] MEDS ORDERED: ONDA4TAB6 PO (20:58)
[2019-10-21] MEDS ORDERED: HYDR-4383 PO (20:58)
[2019-10-21 21:14] VITALS: BP 101/61
== END 2019-10-21 21:15 | disposition home or self-care (01) ==
LOC: ER 19:47
DX: K50.90 Crohn's disease, unspecified, without complications (principal); R10.32 Left lower quadrant pain; R19.7 Diarrhea, unspecified; I10 Essential (primary) hypertension; Z79.899 Other long term (current) drug therapy
CPT/HCPCS: 36415; 80053; 83690; 85025; 96374; 96375; 99284; J2270; J2405; J7030

== ENCOUNTER 2020-01-23 14:52 | Emergency (ER) | payer MEDICAID ==
[~2020-01-23] VITALS: Ht 165.1 cm; Wt 50.9 kg
[2020-01-23 16:10] LABS: CLARITY,URINE CLEAR (Clear); COLOR,URINE YELLOW (Yellow); GLUCOSE, URINE NEGATIVE (Neg); KETONES,URINE NEGATIVE (Neg); LEUKOCYTE ESTERASE ,URINE NEGATIVE (Neg); NITRITES, URINE NEGATIVE (Neg); OCCULT BLOOD,URINE MODERATE (Neg); PROTEIN,URINE NEGATIVE (Neg); UA COLLECTION TYPE CLN CATCH MIDSTREAM; UROBILINOGEN,URINE 0.2 E.U/dL (0.2-1.0)
[2020-01-23 16:16] LABS: SQUAMOUS EPITHELIAL CELL,UR FEW /LPF (FEW)
[2020-01-23] MEDS ORDERED: dexamethasone sod phosphate 10mg/ml inj IV STA (16:17)
[2020-01-23 16:18] LABS: BACTERIA,URINE FEW /HPF (Neg); WBC,URINE 0-4 /HPF (0-4)
[2020-01-23] MEDS ORDERED: morphine 4 MG/ML inj SYRINge IV ONE (16:20)
[2020-01-23] MEDS ORDERED: normal saline 1000ML IV soln IVB ONE (16:20)
[2020-01-23] MEDS ORDERED: PRED20TA PO (16:58)
[2020-01-23 17:02] LABS: BASOPHILS # (AUTO) 0.1 X10'3 (0-0.2); EOSINOPHILS # (AUTO) 0.4 X10'3 (0-0.9); HEMATOCRIT 32.1 % (42.0-52.0); HEMOGLOBIN 10.3 g/dl (14.0-17.9); RED CELL DISTRIBUTION WIDTH 18.1 % (11.5-14.5)
[2020-01-23 17:03] LABS: BASOPHILS % (AUTO) 0.4 % (0-1); EOSINOPHILS % (AUTO) 1.9 % (0-6); LYMPHOCYTES % (AUTO) 4.8 % (21-51); MEAN CORPUSCULAR HEMOGLOBIN 23.3 PG (27.0-31.0); MEAN CORPUSCULAR HGB CONC 32.1 g/dL (33.0-36.5); MEAN CORPUSCULAR VOLUME 72.5 FL (78-98); MEAN PLATELET VOLUME 6.5 FL (7.4-10.4); MONOCYTES % (AUTO) 9.5 % (2-12); NEUTROPHILS # (AUTO) 17.2 X10'3 (1.8-7.7); NEUTROPHILS % (AUTO) 83.4 % (42-75); PLATELET COUNT 623 X10'3 (140-440); RED BLOOD COUNT 4.43 X10'6 (4.70-6.10); WHITE BLOOD COUNT 20.7 X10'3 (4.5-11.0)
[2020-01-23 17:09] LABS: ALANINE AMINOTRANSFERASE 14 U/L (12-78); ALBUMIN 2.2 G/DL (3.4-5.0); ALBUMIN/GLOBULIN RATIO 0.5 (1.1-1.5); ALKALINE PHOSPHATASE 113 IU/L (46-116); ANION GAP 7 (8-16); ASPARTATE AMINO TRANSFERASE 16 U/L (10-37); BILIRUBIN,TOTAL 0.2 MG/DL (0.1-1.0); BLOOD UREA NITROGEN 5 MG/DL (7-18); BUN/CREATININE RATIO 7.1 (5.4-32.0); CALCIUM 8.2 MG/DL (8.5-10.1); CHLORIDE 102 MMOL/L (99-107); GLUCOSE 90 MG/DL (70-104); LIPASE 456 U/L (73-393); POTASSIUM 3.6 MMOL/L (3.5-5.1); SODIUM 135 MMOL/L (135-145); TOTAL CARBON DIOXIDE 25.8 MMOL/L (24-32); TOTAL PROTEIN 6.4 G/DL (6.4-8.2); eGFR > 90 ML/MIN
[2020-01-23] MEDS ORDERED: normal saline 1000ML IV soln IV ONE (17:10)
[2020-01-23] MEDS ORDERED: HYDR-4353 PO (17:36)
[2020-01-23 17:49] VITALS: BP 112/79
== END 2020-01-23 18:23 | disposition home or self-care (01) ==
LOC: ER 14:53
DX: K50.90 Crohn's disease, unspecified, without complications (principal); I10 Essential (primary) hypertension; Z88.8 Allergy status to other drugs, medicaments and biological substances; Z79.899 Other long term (current) drug therapy
CPT/HCPCS: 80053; 81001; 83690; 85025; 96361; 96374; 96375; 99284; J1100; J2270; J7030

== ENCOUNTER 2020-01-27 13:15 | Emergency (ER) | payer MEDICAID ==
[~2020-01-27] VITALS: Ht 165.1 cm; Wt 50.0 kg
[~2020-01-27 13:15] MED LIST changes: +HYDR-4353 PO; +PRED20TA PO
[2020-01-27] MEDS ORDERED: morphine 4 MG/ML inj SYRINge IM ONE (14:45)
[2020-01-27 15:35] LABS: EOSINOPHILS # (AUTO) 0.1 X10'3 (0-0.9)
[2020-01-27 15:36] LABS: BASOPHILS % (AUTO) 0.1 % (0-1); EOSINOPHILS % (AUTO) 0.5 % (0-6); HEMATOCRIT 32.9 % (42.0-52.0); HEMOGLOBIN 10.5 g/dl (14.0-17.9); LYMPHOCYTES % (AUTO) 5.3 % (21-51); MEAN CORPUSCULAR HEMOGLOBIN 23.5 PG (27.0-31.0); MEAN CORPUSCULAR HGB CONC 31.9 g/dL (33.0-36.5); MEAN CORPUSCULAR VOLUME 73.9 FL (78-98); MEAN PLATELET VOLUME 6.5 FL (7.4-10.4); MONOCYTES # (AUTO) 1.3 X10'3 (0-0.9); NEUTROPHILS # (AUTO) 16.7 X10'3 (1.8-7.7); NEUTROPHILS % (AUTO) 87.1 % (42-75); PLATELET COUNT 668 X10'3 (140-440); RED BLOOD COUNT 4.45 X10'6 (4.70-6.10); RED CELL DISTRIBUTION WIDTH 18.4 % (11.5-14.5); WHITE BLOOD COUNT 19.2 X10'3 (4.5-11.0)
[2020-01-27 15:53] LABS: ALANINE AMINOTRANSFERASE 18 U/L (12-78); ALBUMIN 2.4 G/DL (3.4-5.0); ALBUMIN/GLOBULIN RATIO 0.6 (1.1-1.5); ALKALINE PHOSPHATASE 112 IU/L (46-116); ANION GAP 4 (8-16); ASPARTATE AMINO TRANSFERASE 13 U/L (10-37); BILIRUBIN,TOTAL 0.4 MG/DL (0.1-1.0); BLOOD UREA NITROGEN 11 MG/DL (7-18); BUN/CREATININE RATIO 17.2 (5.4-32.0); CALCIUM 8.7 MG/DL (8.5-10.1); CHLORIDE 100 MMOL/L (99-107); CREATININE 0.64 MG/DL (0.60-1.10); GLUCOSE 93 MG/DL (70-104); POTASSIUM 3.4 MMOL/L (3.5-5.1); SODIUM 135 MMOL/L (135-145); TOTAL CARBON DIOXIDE 30.9 MMOL/L (24-32); TOTAL PROTEIN 6.5 G/DL (6.4-8.2); eGFR > 90 ML/MIN
[2020-01-27] MEDS ORDERED: HYDROcodone/acetaminophen 5mg/325mg tablet PO ONE (16:10)
--- NOTE | 2020-01-27 18:01 | NUR ---
PT HAS BASELINE LOW BLOOD PRESSURE, PROVIDER IS AWARE.
[2020-01-27] MEDS ORDERED: sulfamethoxazole/trimethoprim DS (800/160mg) tablet PO ONE (19:30)
[2020-01-27] MEDS ORDERED: SULF1TAB48 PO (19:46)
[2020-01-27 20:03] VITALS: BP 94/56
== END 2020-01-27 20:06 | disposition home or self-care (01) ==
LOC: ER 13:16
DX: L98.8 Other specified disorders of the skin and subcutaneous tissue (principal); K65.1 Peritoneal abscess; R10.84 Generalized abdominal pain; R19.7 Diarrhea, unspecified; K92.1 Melena; I10 Essential (primary) hypertension; Z79.2 Long term (current) use of antibiotics; Z79.899 Other long term (current) drug therapy
CPT/HCPCS: 80053; 84145; 85025; 96372; 99285; J2270

== ENCOUNTER 2020-01-28 09:21 | Emergency (ER) | payer MEDICAID ==
[~2020-01-28] VITALS: Ht 165.1 cm; Wt 50.0 kg
[~2020-01-28 09:21] MED LIST changes: +SULF1TAB48 PO
--- NOTE | 2020-01-28 10:05 | NUR ---
Pt is currently in MRI having the imaging completed that was unable to be completed last night during the visit to the ED.
--- NOTE | 2020-01-28 11:15 | NUR ---
Pt returned from MRI and reports he is feeling anxious due to claustrophobia during the MRI. Pt also reports his abdominal pain has increased due to the MRI.
[2020-01-28 12:19] VITALS: BP 99/66
== END 2020-01-28 12:20 | disposition home or self-care (01) ==
LOC: ER 09:22
DX: K61.1 Rectal abscess (principal); K50.90 Crohn's disease, unspecified, without complications; R19.7 Diarrhea, unspecified; R10.9 Unspecified abdominal pain; M54.5 Low back pain; I10 Essential (primary) hypertension; Z79.899 Other long term (current) drug therapy
CPT/HCPCS: 72195; 99284

== ENCOUNTER 2020-04-08 12:12 | Emergency (ER) | payer MEDICAID ==
[~2020-04-08] VITALS: Ht 165.1 cm; Wt 53.6 kg
[~2020-04-08 12:12] MED LIST changes: -HYDR-4353 PO; -PRED20TA PO; -SULF1TAB48 PO
[2020-04-08 12:14] VITALS: BP 99/54
--- NOTE | 2020-04-08 12:54 | NUR ---
Wound swab given to Dr Leigh to obtain wound culture.
== END 2020-04-08 13:30 | disposition home or self-care (01) ==
LOC: ER 12:13
DX: L02.31 Cutaneous abscess of buttock (principal); I10 Essential (primary) hypertension; Z88.6 Allergy status to analgesic agent; Z79.899 Other long term (current) drug therapy
CPT/HCPCS: 87070; 99282; 99283

== ENCOUNTER 2020-06-02 13:38 | Emergency (ER) | payer MEDICAID ==
[~2020-06-02] VITALS: Ht 165.1 cm; Wt 50.6 kg
[2020-06-02] MEDS ORDERED: morphine 4 MG/ML inj SYRINge IV ONE ×2 (14:40→17:10)
[2020-06-02] MEDS ORDERED: ondansetron/PF 4mg/2ml inj IV ONE ×2 (14:40→17:10)
[2020-06-02] MEDS ORDERED: pantoprazole 40 MG vial IV ONE (14:40)
[2020-06-02] MEDS ORDERED: normal saline 1000ML IV soln IVB ONE (14:40)
[2020-06-02 14:54] LABS: BASOPHILS % (AUTO) 0.3 % (0-1); EOSINOPHILS # (AUTO) 0.3 X10'3 (0-0.9); EOSINOPHILS % (AUTO) 2.3 % (0-6); HEMATOCRIT 34.5 % (42.0-52.0); HEMOGLOBIN 11.3 g/dl (14.0-17.9); LYMPHOCYTES # (AUTO) 1.3 X10'3 (1.1-4.8); LYMPHOCYTES % (AUTO) 8.9 % (21-51); MEAN CORPUSCULAR HEMOGLOBIN 27.8 PG (27.0-31.0); MEAN CORPUSCULAR HGB CONC 32.6 g/dL (33.0-36.5); MEAN CORPUSCULAR VOLUME 85.1 FL (78-98); MEAN PLATELET VOLUME 6.5 FL (7.4-10.4); MONOCYTES # (AUTO) 1.2 X10'3 (0-0.9); MONOCYTES % (AUTO) 7.8 % (2-12); NEUTROPHILS % (AUTO) 80.7 % (42-75); PLATELET COUNT 521 X10'3 (140-440); RED BLOOD COUNT 4.06 X10'6 (4.70-6.10); WHITE BLOOD COUNT 14.9 X10'3 (4.5-11.0)
[2020-06-02 15:09] LABS: ALANINE AMINOTRANSFERASE 17 U/L (12-78); ALBUMIN 2.1 G/DL (3.4-5.0); ALBUMIN/GLOBULIN RATIO 0.5 (1.1-1.5); ALKALINE PHOSPHATASE 94 IU/L (46-116); ANION GAP 5 (8-16); ASPARTATE AMINO TRANSFERASE 13 U/L (10-37); BILIRUBIN,TOTAL 0.2 MG/DL (0.1-1.0); BLOOD UREA NITROGEN 9 MG/DL (7-18); BUN/CREATININE RATIO 12.5 (5.4-32.0); CHLORIDE 103 MMOL/L (99-107); CREATININE 0.72 MG/DL (0.60-1.10); GLUCOSE 87 MG/DL (70-104); LIPASE 110 U/L (73-393); POTASSIUM 3.6 MMOL/L (3.5-5.1); SODIUM 140 MMOL/L (135-145); TOTAL PROTEIN 6.6 G/DL (6.4-8.2); eGFR > 90 ML/MIN
[2020-06-02] MEDS ORDERED: ACET-3068 PO (15:16)
[2020-06-02] MEDS ORDERED: ONDA8TAB13 PO (15:16)
[2020-06-02 17:24] VITALS: BP 94/60
== END 2020-06-02 17:27 | disposition home or self-care (01) ==
LOC: ER 13:39
DX: K50.90 Crohn's disease, unspecified, without complications (principal); R10.30 Lower abdominal pain, unspecified; I10 Essential (primary) hypertension; Z88.6 Allergy status to analgesic agent; Z79.899 Other long term (current) drug therapy
CPT/HCPCS: 36415; 80053; 83690; 85025; 96361; 96374; 96375; 96376; 99284; C9113; J2270; J2405; J7030

== ENCOUNTER 2020-07-03 17:39 | Emergency (ER) | payer MEDICAID ==
[~2020-07-03] VITALS: Ht 165.1 cm; Wt 55.9 kg
[~2020-07-03 17:39] MED LIST changes: +ACET-3068 PO; +ONDA8TAB13 PO
[2020-07-03] MEDS ORDERED: ondansetron/PF 4mg/2ml inj IV ONE (18:20)
[2020-07-03] MEDS ORDERED: morphine 4 MG/ML inj SYRINge IV ONE ×2 (18:20→19:45)
[2020-07-03] MEDS ORDERED: normal saline 1000ML IV soln IVB ONE (18:20)
[2020-07-03 18:39] LABS: BASOPHILS # (AUTO) 0.1 X10'3 (0-0.2); BASOPHILS % (AUTO) 0.9 % (0-1); EOSINOPHILS # (AUTO) 0.2 X10'3 (0-0.9); EOSINOPHILS % (AUTO) 1.5 % (0-6); HEMATOCRIT 32.5 % (42.0-52.0); HEMOGLOBIN 10.6 g/dl (14.0-17.9); LYMPHOCYTES # (AUTO) 0.7 X10'3 (1.1-4.8); LYMPHOCYTES % (AUTO) 4.6 % (21-51); MEAN CORPUSCULAR HEMOGLOBIN 27.4 PG (27.0-31.0); MEAN CORPUSCULAR HGB CONC 32.5 g/dL (33.0-36.5); MEAN CORPUSCULAR VOLUME 84.3 FL (78-98); MEAN PLATELET VOLUME 7.1 FL (7.4-10.4); MONOCYTES # (AUTO) 1.3 X10'3 (0-0.9); MONOCYTES % (AUTO) 8.2 % (2-12); NEUTROPHILS # (AUTO) 13.4 X10'3 (1.8-7.7); NEUTROPHILS % (AUTO) 84.8 % (42-75); PLATELET COUNT 449 X10'3 (140-440); RED BLOOD COUNT 3.85 X10'6 (4.70-6.10); RED CELL DISTRIBUTION WIDTH 15.5 % (11.5-14.5); WHITE BLOOD COUNT 15.8 X10'3 (4.5-11.0)
[2020-07-03 18:49] LABS: ALANINE AMINOTRANSFERASE 24 U/L (12-78); ALBUMIN 2.3 G/DL (3.4-5.0); ALBUMIN/GLOBULIN RATIO 0.5 (1.1-1.5); ALKALINE PHOSPHATASE 197 IU/L (46-116); AMYLASE 80 U/L (25-115); ANION GAP 8 (8-16); ASPARTATE AMINO TRANSFERASE 21 U/L (10-37); BILIRUBIN,TOTAL 0.3 MG/DL (0.1-1.0); BLOOD UREA NITROGEN 11 MG/DL (7-18); BUN/CREATININE RATIO 12.9 (5.4-32.0); CALCIUM 9.1 MG/DL (8.5-10.1); CHLORIDE 100 MMOL/L (99-107); CREATININE 0.85 MG/DL (0.60-1.10); GLUCOSE 97 MG/DL (70-104); LIPASE 68 U/L (73-393); POTASSIUM 4.4 MMOL/L (3.5-5.1); SODIUM 136 MMOL/L (135-145); TOTAL CARBON DIOXIDE 28.1 MMOL/L (24-32); TOTAL PROTEIN 7.1 G/DL (6.4-8.2); eGFR > 90 ML/MIN
--- NOTE | 2020-07-03 19:41 | NUR ---
md informed pain is at 7/10 still, orders recieved Patient's lowest pain score is ussualy a 4/10
[2020-07-03 20:24] VITALS: BP 103/63
== END 2020-07-03 20:20 | disposition home or self-care (01) ==
LOC: ER 17:39
DX: K50.90 Crohn's disease, unspecified, without complications (principal); R10.84 Generalized abdominal pain; R19.7 Diarrhea, unspecified; I10 Essential (primary) hypertension; Z88.8 Allergy status to other drugs, medicaments and biological substances; Z91.011 Allergy to milk products; Z79.899 Other long term (current) drug therapy
CPT/HCPCS: 36415; 80053; 82150; 83690; 85025; 96361; 96374; 96375; 96376; 99284; J2270; J2405; J7030

== ENCOUNTER 2022-08-05 17:39 | Emergency (ER) | payer MEDICAID ==
[~2022-08-05] VITALS: Ht 165.1 cm; Wt 56.8 kg
[~2022-08-05 17:39] MED LIST changes: -ACET-3068 PO
[2022-08-05 17:45] VITALS: BP 105/60
[2022-08-05] MEDS ORDERED: ondansetron 4mg rapidly disintigrating tab PO ONE (18:55)
[2022-08-05] MEDS ORDERED: HYDROcodone/acetaminophen 5mg/325mg tablet PO ONE (18:55)
[2022-08-05] MEDS ORDERED: amox tr/potassium clavulanate 875/125mg TAB PO ONE (19:00)
[2022-08-05] MEDS ORDERED: HYDR-3965 PO (20:00)
[2022-08-05] MEDS ORDERED: AMOX-117 PO (20:00)
== END 2022-08-05 20:15 | disposition home or self-care (01) ==
LOC: ER 17:39
DX: M54.18 Radiculopathy, sacral and sacrococcygeal region (principal); I10 Essential (primary) hypertension; Z91.040 Latex allergy status; Z88.6 Allergy status to analgesic agent; Z79.899 Other long term (current) drug therapy; Z79.1 Long term (current) use of non-steroidal anti-inflammatories (NSAID)
CPT/HCPCS: 72100; 99284

== ENCOUNTER 2022-11-27 12:51 | Emergency (ER) | payer MEDICAID ==
[~2022-11-27] VITALS: Ht 165.1 cm; Wt 70.0 kg
[2022-11-27 13:05] VITALS: BP 118/68
[2022-11-27] MEDS ORDERED: SULF1TAB49 PO (14:14)
[2022-11-27] MEDS ORDERED: LIDOcaine 1% W/epiNEPHrine 1:100,000 20ml vial IJ ONE (14:20)
== END 2022-11-27 14:43 | disposition home or self-care (01) ==
LOC: ER 12:52
DX: L02.31 Cutaneous abscess of buttock (principal)
CPT/HCPCS: 10060; 99283; A6449

== ENCOUNTER 2023-02-03 10:16 | Emergency (ER) | payer MEDICAID ==
[~2023-02-03] VITALS: Ht 165.1 cm; Wt 48.0 kg
[2023-02-03 13:05] VITALS: TEMP 97
[2023-02-03 15:30] VITALS: BP 129/84; PULSE 67; O2SAT 97
[2023-02-03] MEDS ORDERED: HYDR-3965 PO (17:28)
[2023-02-03] MEDS ORDERED: CLIN-97 PO (17:28)
[2023-02-03] MEDS ORDERED: HYDROcodone/acetaminophen 5mg/325mg tablet PO ONE (17:30)
[2023-02-03 17:42] VITALS: RESP 18
== END 2023-02-03 18:06 | disposition home or self-care (01) ==
LOC: ER 10:16
DX: L02.31 Cutaneous abscess of buttock (principal); I10 Essential (primary) hypertension; Z91.040 Latex allergy status; Z88.6 Allergy status to analgesic agent; Z79.899 Other long term (current) drug therapy
CPT/HCPCS: 10060; 99283; A6266; A6449

== ENCOUNTER 2023-02-06 16:58 | Emergency (ER) | payer MEDICAID ==
[~2023-02-06 16:58] MED LIST changes: +CLIN-97 PO; +HYDR-3965 PO
== END 2023-02-06 17:23 | disposition left against medical advice (07) ==
LOC: ER 16:59
DX: Z00.8 Encounter for other general examination (principal); Z53.21 Procedure and treatment not carried out due to patient leaving prior to being seen by health care provider

== ENCOUNTER 2023-02-07 09:00 | Emergency (ER) | payer MEDICAID ==
[~2023-02-07] VITALS: Ht 165.1 cm; Wt 62.0 kg
--- NOTE | 2023-02-07 12:08 | NUR ---
AT BEDSIDE WITH SHARDA MUELLER FOR EXAM.
[2023-02-07 12:37] VITALS: BP 119/70; PULSE 66; RESP 16; TEMP 98.2; O2SAT 99
== END 2023-02-07 12:39 | disposition home or self-care (01) ==
LOC: ER 09:01
DX: L02.31 Cutaneous abscess of buttock (principal); I10 Essential (primary) hypertension; Z88.8 Allergy status to other drugs, medicaments and biological substances; Z88.6 Allergy status to analgesic agent; Z79.1 Long term (current) use of non-steroidal anti-inflammatories (NSAID); Z79.899 Other long term (current) drug therapy
CPT/HCPCS: 99281; A6449

== ENCOUNTER 2023-12-15 13:22 | Emergency (ER) | payer MEDICAID ==
[~2023-12-15] VITALS: Ht 167.6 cm; Wt 63.6 kg
[~2023-12-15 13:22] MED LIST changes: -HYDR-3965 PO; +ONDA-245 PO; -ONDA8TAB13 PO
[2023-12-15] MEDS ORDERED: METH-798 PO (15:21)
[2023-12-15] MEDS ORDERED: HYDR-3965 PO (15:22)
[2023-12-15] MEDS: cyclobenzaprine 10mg tablet PO ONE (15:24)
[2023-12-15 15:48] VITALS: BP 133/78; PULSE 56; RESP 16; TEMP 98.4; O2SAT 100
== END 2023-12-15 15:48 | disposition home or self-care (01) ==
LOC: ER 13:22
DX: M26.623 Arthralgia of bilateral temporomandibular joint (principal); I10 Essential (primary) hypertension; Z88.8 Allergy status to other drugs, medicaments and biological substances; Z91.018 Allergy to other foods; Z79.2 Long term (current) use of antibiotics; Z79.899 Other long term (current) drug therapy
CPT/HCPCS: 99283